=== PATIENT | female | born 1945 | race American Indian/Alaskan Native ===

== ENCOUNTER → 2017-09-01 | Outpatient (CLI) | payer BC ==
[~2017-09-01] MED LIST: ALBU90OI61; ALLO100; ALLO300; ASPI81CH; BUME1; CLOP75 PO; DIPASPER; FAMO20 PO; GABA300; GLYB5; HYDACE10B PO; HYDROCORT; INSULANI; LEVFLO250 PO; LOSA50 PO; NAPR375; NAPR500 PO; Norvasc2.5 MG PO; OXYC5 PO; OXYCODONE 5 MG; PANT20; PIOG15; POTA10T; SIMV40; STOOL SOFTENER; TIZA4; TRAM50 PO; VALS80; [UNRECOGNIZED DRUG - REMARK]
[2017-09-01 09:51] LABS: BASOPHILS ABSOLUTE AUTO 0.03 K/mm3 (0.00-0.23); BASOPHILS PERCENT AUTO 0 % (0-2); EOSINOPHILS PERCENT AUTO 1 % (0-6); Hematocrit 36.3 % (33.0-51.0); Hemoglobin 11.9 g/dL (11.5-16.0); IMMATURE GRAN ABSOLUTE AUTO 0.05 K/mm3 (0.00-0.10); IMMATURE GRAN PERCENT AUTO 1 % (0-1); LYMPHOCYTES ABSOLUTE AUTO 0.63 K/mm3 (0.84-5.20); LYMPHOCYTES PERCENT AUTO 6 % (21-46); MONOCYTES PERCENT AUTO 5 % (4-13); Mean Corpuscular HGB 29.2 pg (26.0-34.0); Mean Corpuscular HGB Conc 32.8 g/dL (31.5-36.5); Mean Corpuscular Volume 89 fL (80-100); Mean Platelet Volume 11.1 fL (9.1-12.4); NEUTROPHILS ABSOLUTE AUTO 9.63 K/mm3 (1.96-9.15); NEUTROPHILS PERCENT AUTO 87 % (41-73); Platelet Count 212 K/mm3 (150-400); RDW Coefficient Variation 13.2 % (11.7-14.2); RDW Standard Deviation 42.5 fL (35.1-46.3); Red Blood Cell Count 4.08 M/mm3 (3.80-5.20); White Blood Cell Count 11.04 K/mm3 (4.00-11.30)
[2017-09-01 10:00] LABS: Albumin/Globulin Ratio 0.9 (0.8-1.8); Bilirubin, Total 0.4 mg/dL (0.1-1.0); Bun/Creatinine Ratio 16.1 (12.0-20.0); Creatinine, Blood 1.12 mg/dL (0.40-1.00); Globulin, Blood 4.6 g/dL (2.2-4.0); Potassium, Blood 4.4 mmol/L (3.5-5.5); Total Protein, Blood 8.6 g/dL (6.4-8.2)
== END | disposition home or self-care (01) ==
LOC: LAB EV 09:42
PROVIDERS: General Practice
DX: R06.02 Shortness of breath (principal)
CPT/HCPCS: 80053; 83880; 85025

== ENCOUNTER → 2019-09-12 | Outpatient (CLI) | payer BC ==
[~2019-09-12] MED LIST changes: +ACET500 PO; +AMLO5 PO; +AZIT500 PO; +BENADRYL25 M1 PO; +BENZ100A PO; +GABA300 PO; +GUAI600T33 PO; +LOSARTAN POTAS100 MG PO; +METF500 PO; +METPRE4 PO; +VITAMIN B-121000 MCG PO
[2019-09-12 16:14] LABS: BASOPHILS ABSOLUTE AUTO 0.07 K/mm3 (0.00-0.23); BASOPHILS PERCENT AUTO 1 % (0-2); EOSINOPHILS ABSOLUTE AUTO 0.22 K/mm3 (0.00-0.68); EOSINOPHILS PERCENT AUTO 2 % (0-6); Hematocrit 37.1 % (33.0-51.0); Hemoglobin 12.1 g/dL (11.5-16.0); IMMATURE GRAN ABSOLUTE AUTO 0.06 K/mm3 (0.00-0.10); IMMATURE GRAN PERCENT AUTO 1 % (0-1); LYMPHOCYTES ABSOLUTE AUTO 1.71 K/mm3 (0.84-5.20); LYMPHOCYTES PERCENT AUTO 14 % (21-46); MONOCYTES ABSOLUTE AUTO 0.62 K/mm3 (0.16-1.47); MONOCYTES PERCENT AUTO 5 % (4-13); Mean Corpuscular HGB 30.1 pg (26.0-34.0); Mean Corpuscular HGB Conc 32.6 g/dL (31.5-36.5); Mean Corpuscular Volume 92 fL (80-100); Mean Platelet Volume 11.4 fL (9.1-12.4); NEUTROPHILS ABSOLUTE AUTO 9.21 K/mm3 (1.96-9.15); NEUTROPHILS PERCENT AUTO 77 % (41-73); Platelet Count 264 K/mm3 (150-400); RDW Coefficient Variation 13.5 % (11.7-14.2); RDW Standard Deviation 45.5 fL (35.1-46.3); Red Blood Cell Count 4.02 M/mm3 (3.80-5.20); White Blood Cell Count 11.89 K/mm3 (4.00-11.30)
[2019-09-12 16:24] LABS: Albumin/Globulin Ratio 0.9 (0.8-1.8); Bilirubin, Total 0.2 mg/dL (0.1-1.0); Bun/Creatinine Ratio 20.2 (12.0-20.0); Calcium, Blood 9.3 mg/dL (8.5-10.1); Creatinine, Blood 1.04 mg/dL (0.40-1.00); Globulin, Blood 4.3 g/dL (2.2-4.0); Potassium, Blood 4.9 mmol/L (3.5-5.5); Total Protein, Blood 8.3 g/dL (6.4-8.2)
== END | disposition home or self-care (01) ==
LOC: LAB EV 16:09 → LAB SHORT 16:09
PROVIDERS: Physician Assistant
DX: R05 Cough (principal)
CPT/HCPCS: 80053; 83880; 85025

== ENCOUNTER 2019-09-14 13:40 | Observation (INO) | payer BC ==
[~2019-09-14] VITALS: Ht 170.2 cm; Wt 99.4 kg
[~2019-09-14 13:40] MED LIST changes: -ACET500 PO; -AMLO5 PO; -AZIT500 PO; -BENADRYL25 M1 PO; -BENZ100A PO; -GABA300 PO; -GUAI600T33 PO; -LOSARTAN POTAS100 MG PO; -METF500 PO; -METPRE4 PO; -VITAMIN B-121000 MCG PO
[2019-09-14 14:14] LABS: BASOPHILS ABSOLUTE AUTO 0.06 K/mm3 (0.00-0.23); BASOPHILS PERCENT AUTO 1 % (0-2); EOSINOPHILS ABSOLUTE AUTO 0.36 K/mm3 (0.00-0.68); EOSINOPHILS PERCENT AUTO 3 % (0-6); Hematocrit 38.1 % (33.0-51.0); Hemoglobin 12.3 g/dL (11.5-16.0); IMMATURE GRAN ABSOLUTE AUTO 0.04 K/mm3 (0.00-0.10); IMMATURE GRAN PERCENT AUTO 0 % (0-1); LYMPHOCYTES ABSOLUTE AUTO 1.85 K/mm3 (0.84-5.20); LYMPHOCYTES PERCENT AUTO 17 % (21-46); MONOCYTES ABSOLUTE AUTO 0.72 K/mm3 (0.16-1.47); MONOCYTES PERCENT AUTO 7 % (4-13); Mean Corpuscular HGB 30.2 pg (26.0-34.0); Mean Corpuscular HGB Conc 32.3 g/dL (31.5-36.5); Mean Corpuscular Volume 94 fL (80-100); Mean Platelet Volume 11.4 fL (9.1-12.4); NEUTROPHILS ABSOLUTE AUTO 8.02 K/mm3 (1.96-9.15); NEUTROPHILS PERCENT AUTO 73 % (41-73); Platelet Count 261 K/mm3 (150-400); RDW Coefficient Variation 13.4 % (11.7-14.2); RDW Standard Deviation 45.8 fL (35.1-46.3); Red Blood Cell Count 4.07 M/mm3 (3.80-5.20); White Blood Cell Count 11.05 K/mm3 (4.00-11.30)
[2019-09-14 14:28] LABS: Alanine Aminotransfer (ALT/SGP 27 U/L (12-78); Albumin, Blood 4.1 g/dL (3.4-5.0); Albumin/Globulin Ratio 0.9 (0.8-1.8); Alk Phos 119 U/L (50-136); Anion Gap 7 mmol/L (6-16); Aspartate Aminotrans (AST/SGOT 20 U/L (12-37); Bilirubin, Total 0.2 mg/dL (0.1-1.0); Blood Urea Nitrogen 20 mg/dL (8-24); Bun/Creatinine Ratio 21.2 (12.0-20.0); CO2, Blood 23 mmol/L (21-32); Calcium, Blood 9.2 mg/dL (8.5-10.1); Chloride, Blood 112 mmol/L (98-108); Creatinine, Blood 0.94 mg/dL (0.40-1.00); Globulin, Blood 4.6 g/dL (2.2-4.0); Glomerular Filtration Rate >60 (60-); Glucose, Blood 95 mg/dL (70-99); Potassium, Blood 4.5 mmol/L (3.5-5.5); Sodium, Blood 142 mmol/L (136-145); Total Protein, Blood 8.7 g/dL (6.4-8.2); Troponin I <0.015 ng/mL (0.000-0.040)
[2019-09-14 15:19] LABS: Influenza A Negative (NEGATIVE); Influenza B Negative (NEGATIVE)
[2019-09-14] MEDS ORDERED: AZIT500 PO (15:39)
--- NOTE | 2019-09-14 18:34 | NUR ---
PT ARRIVED AT 1721 TO ROOM. PT OREINTED TO CALL LIGHT AND BED ALARM IN PLACE. PT AOX4 AND COOPERATIVE OF CARE. PT HAS A PERSISTENT COUGH AND LSC THROUGHOUT. PT IS ON 1L O2 AT THIS TIME. PT IS RESTING IN BED WAITING FOR HER DINNER TO ARRIVE. WILL CONTINUE TO MONITOR.
--- NOTE | 2019-09-15 05:02 | NUR ---
SHIFT SUMMARY PT O2 WAS REMOVED DUE TO HIGH SPO2. PT HAS BEEN DOING WELL ON RA. PT HAS SLEPT WELL AND HAD NO NEW ISSUES NOTED. PT STILL GETS SOB WITH EXERTION TO BSC. EXERTION RESOLVES QUICKLY WITH REST. PT HAD NOTED HARSH COUGH AND PROVIDER ORDERED MEDS. PT RESPONDED WELL TO COUGH MEDS. PT CURRENTLY SLEEPING IN NO DISTRESS. CALL LIGHT IN REACH.
[2019-09-15 05:37] LABS: BASOPHILS ABSOLUTE AUTO 0.01 K/mm3 (0.00-0.23); BASOPHILS PERCENT AUTO 0 % (0-2); EOSINOPHILS PERCENT AUTO 0 % (0-6); Hematocrit 35.7 % (33.0-51.0); Hemoglobin 11.3 g/dL (11.5-16.0); IMMATURE GRAN ABSOLUTE AUTO 0.06 K/mm3 (0.00-0.10); IMMATURE GRAN PERCENT AUTO 1 % (0-1); LYMPHOCYTES ABSOLUTE AUTO 0.67 K/mm3 (0.84-5.20); LYMPHOCYTES PERCENT AUTO 7 % (21-46); MONOCYTES ABSOLUTE AUTO 0.05 K/mm3 (0.16-1.47); MONOCYTES PERCENT AUTO 1 % (4-13); Mean Corpuscular HGB 29.7 pg (26.0-34.0); Mean Corpuscular HGB Conc 31.7 g/dL (31.5-36.5); Mean Corpuscular Volume 94 fL (80-100); Mean Platelet Volume 11.6 fL (9.1-12.4); NEUTROPHILS ABSOLUTE AUTO 8.76 K/mm3 (1.96-9.15); NEUTROPHILS PERCENT AUTO 92 % (41-73); Platelet Count 209 K/mm3 (150-400); RDW Coefficient Variation 13.2 % (11.7-14.2); RDW Standard Deviation 45.6 fL (35.1-46.3); White Blood Cell Count 9.55 K/mm3 (4.00-11.30)
[2019-09-15 06:00] LABS: Anion Gap 7 mmol/L (6-16); Blood Urea Nitrogen 22 mg/dL (8-24); Bun/Creatinine Ratio 27.2 (12.0-20.0); CO2, Blood 22 mmol/L (21-32); Chloride, Blood 109 mmol/L (98-108); Creatinine, Blood 0.81 mg/dL (0.40-1.00); Glomerular Filtration Rate >60 (60-); Glucose, Blood 215 mg/dL (70-99); Potassium, Blood 4.9 mmol/L (3.5-5.5); Sodium, Blood 138 mmol/L (136-145)
--- NOTE | 2019-09-15 14:39 | NUR ---
Patient is sitting on a chair and alert. Patient shares about all that she has overcome in life and about her stanton in God. Patient tells me that this series of medical events really scared her and how she is afraid to go home with out proper medical suppies to support her if she can't breath. We talk about the DC plan and how they will go over all her concerns. I listen empathically, normalize patient's experience and provide a blessing. Patient responds well and shows signs of reduced fear. I will continue to remain available to patient and family.
--- NOTE | 2019-09-15 17:34 | NUR ---
PT AOX4 AND COOPERATIVE OF CARE. PT WAS BREATHING MUCH MORE RELAXED AT START OF SHIFT TODAY. LATER IN THE MORNING PT HAD COUGHING SPELL AND WAS TREATED PER EMAR FOR COUGH AND NAUSEA. COUGHING SEEMS TO CAUSE PT TO VOMIT THIS OCCURED 4 TIMES TODAY. REQUIRED PRN RT TREATMENT WITH THE FIRST SPELL SHE WAS HAVING TO WORK TO BREATH. THIS TREATMENT SEEMED EFFECTIVE. WILL CONTINUE TO MONITOR.
--- NOTE | 2019-09-16 00:19 | NUR ---
INTERMITTENT COUGHING, RECEIVED TESSALON PEARLS PER MD ORDERS. AFFECT CHEERFUL. ANTIBIOTICS ADMINISTERED ORDERED - SEE MAR FOR MED DETAILS. CALL LIGHT IN REACH. RESTING QUIETLY AT INTERVALS.
[2019-09-16 05:46] LABS: BASOPHILS ABSOLUTE AUTO 0.01 K/mm3 (0.00-0.23); BASOPHILS PERCENT AUTO 0 % (0-2); EOSINOPHILS PERCENT AUTO 0 % (0-6); Hematocrit 32.6 % (33.0-51.0); Hemoglobin 10.6 g/dL (11.5-16.0); IMMATURE GRAN ABSOLUTE AUTO 0.14 K/mm3 (0.00-0.10); IMMATURE GRAN PERCENT AUTO 1 % (0-1); LYMPHOCYTES ABSOLUTE AUTO 0.71 K/mm3 (0.84-5.20); LYMPHOCYTES PERCENT AUTO 4 % (21-46); MONOCYTES ABSOLUTE AUTO 0.27 K/mm3 (0.16-1.47); MONOCYTES PERCENT AUTO 2 % (4-13); Mean Corpuscular HGB Conc 32.5 g/dL (31.5-36.5); Mean Corpuscular Volume 92 fL (80-100); Mean Platelet Volume 11.8 fL (9.1-12.4); NEUTROPHILS ABSOLUTE AUTO 16.57 K/mm3 (1.96-9.15); NEUTROPHILS PERCENT AUTO 94 % (41-73); Platelet Count 225 K/mm3 (150-400); RDW Coefficient Variation 13.5 % (11.7-14.2); RDW Standard Deviation 45.3 fL (35.1-46.3); Red Blood Cell Count 3.53 M/mm3 (3.80-5.20)
[2019-09-16 06:07] LABS: Anion Gap 7 mmol/L (6-16); Blood Urea Nitrogen 28 mg/dL (8-24); Bun/Creatinine Ratio 30.5 (12.0-20.0); CO2, Blood 23 mmol/L (21-32); Chloride, Blood 107 mmol/L (98-108); Creatinine, Blood 0.92 mg/dL (0.40-1.00); Glomerular Filtration Rate >60 (60-); Glucose, Blood 243 mg/dL (70-99); Potassium, Blood 4.8 mmol/L (3.5-5.5); Sodium, Blood 137 mmol/L (136-145)
[2019-09-16] MEDS ORDERED: AMLO5 PO (13:39)
[2019-09-16] MEDS ORDERED: ACET500 PO (13:41)
[2019-09-16] MEDS ORDERED: BENZ100A PO (13:42)
[2019-09-16] MEDS ORDERED: GUAI600T33 PO (13:43)
[2019-09-16] MEDS ORDERED: BENADRYL25 M1 PO (13:43)
[2019-09-16] MEDS ORDERED: METPRE4 PO (13:49)
[2019-09-16] MEDS ORDERED: METF500 PO (13:50)
--- NOTE | 2019-09-16 13:57 | NUR ---
DISCHARGE PT STATE NO SHORTNESS OF BREATH @ REST, STATE BREATHING CONTINUES TO IMPROVE. STATE CONTINUING DRY/NONPRODUCTIVE COUGH. LUNGS ARE DECREASED, COARSE BASES, BIOX >90% RA. DR GOSS IN TO SEE HER STATE SHE MAY GO HOME TODAY, PLACE D/C ORDERS. [facility] D/C RN LVN ARRANGE F/U PCP APPTS & OUTPT COPD ED w [facility]. PT REQUEST HARD COPY OF MED ORDERS TO CARRY IN TO [facility], PROVIDED. IV D/C INTACT. D/C INSTRUCT REVIEWED. PT IS PLEASANT/APPRECIATIVE. W/C ESCORT FROM HOSP PROVIDED.
[2019-09-17] MEDS ORDERED: GABA300 PO (14:51)
[2019-09-17] MEDS ORDERED: VITAMIN B-121000 MCG PO (15:18)
[2019-09-17] MEDS ORDERED: LOSARTAN POTAS100 MG PO (15:19)
[2019-09-17] MEDS ORDERED: METPRE4 PO (15:45)
== END 2019-09-16 14:45 | disposition home or self-care (01) ==
LOC: ER 13:40 → MEDS 13:41 → ER 16:14 → MEDS 17:11
PROVIDERS: Emergency Medicine; ADMIT Internal Medicine Endocrinology, Diabetes & Metabolism
DX: J20.9 Acute bronchitis, unspecified (principal); I12.9 Hypertensive chronic kidney disease with stage 1 through stage 4 chronic kidney disease, or unspecified chronic kidney disease; E11.22 Type 2 diabetes mellitus with diabetic chronic kidney disease; N18.3 Chronic kidney disease, stage 3 (moderate); E66.9 Obesity, unspecified; J45.901 Unspecified asthma with (acute) exacerbation; E78.5 Hyperlipidemia, unspecified; G47.33 Obstructive sleep apnea (adult) (pediatric); I69.354 Hemiplegia and hemiparesis following cerebral infarction affecting left non-dominant side; G89.29 Other chronic pain; M06.9 Rheumatoid arthritis, unspecified; J18.9 Pneumonia, unspecified organism; D63.1 Anemia in chronic kidney disease; Z88.6 Allergy status to analgesic agent; Z88.5 Allergy status to narcotic agent; Z88.8 Allergy status to other drugs, medicaments and biological substances; Z87.891 Personal history of nicotine dependence; Z79.02 Long term (current) use of antithrombotics/antiplatelets; Z79.899 Other long term (current) drug therapy; Z68.41 Body mass index [BMI] 40.0-44.9, adult; Z79.84 Long term (current) use of oral hypoglycemic drugs
CPT/HCPCS: 36415; 71045; 71046; 80048; 80053; 82947; 83605; 83880; 84145; 84484; 85025; 87804; 93005; 93010; 94640; 94667; 94760; 96361; 96374; 96375; 99285-25; J0456; J1650; J2405; J2920; J2930; J7030; J7050; Q0163

== ENCOUNTER 2019-09-17 12:30 | Inpatient (IN) | payer BC, MEDICARE ==
[~2019-09-17] VITALS: Ht 170.2 cm; Wt 94.5 kg
[~2019-09-17 12:30] MED LIST changes: +ACET500 PO; +AMLO5 PO; +AZIT500 PO; +BENADRYL25 M1 PO; +BENZ100A PO; +GUAI600T33 PO; +METF500 PO; +METPRE4 PO
[2019-09-17 13:57] LABS: BASOPHILS ABSOLUTE AUTO 0.02 K/mm3 (0.00-0.23); BASOPHILS PERCENT AUTO 0 % (0-2); EOSINOPHILS PERCENT AUTO 0 % (0-6); Hematocrit 34.6 % (33.0-51.0); Hemoglobin 11.2 g/dL (11.5-16.0); IMMATURE GRAN ABSOLUTE AUTO 0.09 K/mm3 (0.00-0.10); IMMATURE GRAN PERCENT AUTO 1 % (0-1); LYMPHOCYTES ABSOLUTE AUTO 1.48 K/mm3 (0.84-5.20); LYMPHOCYTES PERCENT AUTO 11 % (21-46); MONOCYTES ABSOLUTE AUTO 0.42 K/mm3 (0.16-1.47); MONOCYTES PERCENT AUTO 3 % (4-13); Mean Corpuscular HGB 30.2 pg (26.0-34.0); Mean Corpuscular HGB Conc 32.4 g/dL (31.5-36.5); Mean Corpuscular Volume 93 fL (80-100); NEUTROPHILS PERCENT AUTO 86 % (41-73); Platelet Count 244 K/mm3 (150-400); RDW Coefficient Variation 13.5 % (11.7-14.2); RDW Standard Deviation 45.7 fL (35.1-46.3); Red Blood Cell Count 3.71 M/mm3 (3.80-5.20); White Blood Cell Count 13.81 K/mm3 (4.00-11.30)
[2019-09-17 14:17] LABS: Alanine Aminotransfer (ALT/SGP 33 U/L (12-78); Albumin, Blood 3.7 g/dL (3.4-5.0); Alk Phos 94 U/L (50-136); Anion Gap 10 mmol/L (6-16); Aspartate Aminotrans (AST/SGOT 33 U/L (12-37); Bilirubin, Total 0.3 mg/dL (0.1-1.0); Blood Urea Nitrogen 33 mg/dL (8-24); Bun/Creatinine Ratio 33.7 (12.0-20.0); CO2, Blood 20 mmol/L (21-32); Calcium, Blood 9.1 mg/dL (8.5-10.1); Chloride, Blood 111 mmol/L (98-108); Creatinine, Blood 0.98 mg/dL (0.40-1.00); Globulin, Blood 3.8 g/dL (2.2-4.0); Glomerular Filtration Rate 59 (60-); Glucose, Blood 183 mg/dL (70-99); Potassium, Blood 3.8 mmol/L (3.5-5.5); Sodium, Blood 141 mmol/L (136-145); Total Protein, Blood 7.5 g/dL (6.4-8.2); Troponin I <0.015 ng/mL (0.000-0.040)
[2019-09-17] MEDS ORDERED: GABA300 PO (14:51)
[2019-09-17] MEDS ORDERED: VITAMIN B-121000 MCG PO (15:18)
[2019-09-17] MEDS ORDERED: LOSARTAN POTAS100 MG PO (15:19)
[2019-09-17] MEDS ORDERED: METPRE4 PO (15:45)
--- NOTE | 2019-09-17 16:25 | NUR ---
Echocardiogram completed.
--- NOTE | 2019-09-17 18:24 | NUR ---
ARRIVES TO FLOOR ABOUT 1500. ALERT. ORIENTED. D'C FROM HOSPITAL YESTERDAY AND RETURNS W/SOB AND COUGH. BNP HIGH W/NO EDEMA IN EXT,BUT LUNGS W/RHONCHI AND INTERMITTENT WHEEZING. SPUTUM SENT. IV POSITIONAL.MOIST SOUNDING COUGH. AWARE TO CALL STAFF WHEN WANTS OOB. UNSTEADY/WEAK LEGS. SPEAKS IN COMPLETE SENTENCS. WCTM.
--- NOTE | 2019-09-18 02:45 | NUR ---
PLEASANT AND COOPERATIVE WITH CARE. AAOX4 RESP EVEN AND UNLABORED. LUNG SOUNDS DIMINISHED. HAD SOME ANXIETY AND FEELINGS OF SOB EARLY THIS NIGHT. CONSULTED RT. PT WAS SATTING IN HIGH 90'S AND WAS PLACED ON 3L OF AIR FOR COMFORT. RT REMOVED THE AIR SHORTLY AFTER AND PT STATES SHE FEELS FINE. NO OTHER COMPLAINTS THUS FAR. PT APPEARS TO BE SLEEPING AND IN NO ACUTE DISTRESS AT THIS TIME. WILL CONTINUE TO MONITOR.
[2019-09-18 05:25] LABS: BASOPHILS ABSOLUTE AUTO 0.01 K/mm3 (0.00-0.23); BASOPHILS PERCENT AUTO 0 % (0-2); EOSINOPHILS PERCENT AUTO 0 % (0-6); Hematocrit 32.9 % (33.0-51.0); Hemoglobin 10.7 g/dL (11.5-16.0); IMMATURE GRAN ABSOLUTE AUTO 0.14 K/mm3 (0.00-0.10); IMMATURE GRAN PERCENT AUTO 2 % (0-1); LYMPHOCYTES ABSOLUTE AUTO 0.39 K/mm3 (0.84-5.20); LYMPHOCYTES PERCENT AUTO 5 % (21-46); MONOCYTES ABSOLUTE AUTO 0.07 K/mm3 (0.16-1.47); MONOCYTES PERCENT AUTO 1 % (4-13); Mean Corpuscular HGB 29.8 pg (26.0-34.0); Mean Corpuscular HGB Conc 32.5 g/dL (31.5-36.5); Mean Corpuscular Volume 92 fL (80-100); Mean Platelet Volume 12.1 fL (9.1-12.4); NEUTROPHILS PERCENT AUTO 93 % (41-73); Platelet Count 214 K/mm3 (150-400); RDW Coefficient Variation 13.2 % (11.7-14.2); RDW Standard Deviation 45.1 fL (35.1-46.3); Red Blood Cell Count 3.59 M/mm3 (3.80-5.20); White Blood Cell Count 8.11 K/mm3 (4.00-11.30)
[2019-09-18 05:55] LABS: Anion Gap 8 mmol/L (6-16); Blood Urea Nitrogen 32 mg/dL (8-24); Bun/Creatinine Ratio 37.6 (12.0-20.0); CO2, Blood 23 mmol/L (21-32); Calcium, Blood 8.8 mg/dL (8.5-10.1); Chloride, Blood 108 mmol/L (98-108); Creatinine, Blood 0.85 mg/dL (0.40-1.00); Glomerular Filtration Rate >60 (60-); Glucose, Blood 247 mg/dL (70-99); Potassium, Blood 4.7 mmol/L (3.5-5.5); Sodium, Blood 139 mmol/L (136-145)
--- NOTE | 2019-09-18 16:45 | NUR ---
PT GAVE STUDENT NURSE PERMISSION TO ASSIST WITH CARE ON 09/18/2019.
--- NOTE | 2019-09-18 16:50 | NUR ---
PT AOX4 AND COOPERATIVE OF ALL CARE. PT STARTED OUT SHIFT DOING WELL NOT SHORTNESS OF BREATH AND CONTINUED THROUGH THE DAY. PT HAD ONE EPISODE OF ANXIETY LATER IN THE DAY IMMEDIATELY AFTER RECIEVING A BREATHING TREATMENT. PT WAS 98%, BUT FELT SOB AND WAS BREATHING FAST. PT DID GOOD WITH INSTRUCTION TO SLOW DOWN BREATHING AND THEN SHE CALMED DOWN AND RELAXED. PT IS NOW RESTING NICELY IN BED. PT WAS ALSO ABLE TO TAKE A SHOWER TODAY INDEPENDENTLY. WILL CONTINUE TO MONITOR.
--- NOTE | 2019-09-18 20:19 | NUR ---
LATE ENTRY 1953 PHYSICIAN CORRESPONDENCE STATED THAT PATIENT REUQESTING SLEEP AIDE FOR TONIGHT. WELL BP ELEVATED TO 158/136. KEERTHI LOCKHART STATED TO FIND OUT IN PATIENT HAD EVER TAKEN ANYTHING LIKE MELATONIN OR ANTIANXIETY BEFORE AND CHECK BP AGAIN. THEN CALL BACK WITH RESULTS
[2019-09-19 05:32] LABS: BASOPHILS ABSOLUTE AUTO 0.01 K/mm3 (0.00-0.23); BASOPHILS PERCENT AUTO 0 % (0-2); EOSINOPHILS PERCENT AUTO 0 % (0-6); Hematocrit 33.6 % (33.0-51.0); Hemoglobin 10.9 g/dL (11.5-16.0); IMMATURE GRAN ABSOLUTE AUTO 0.22 K/mm3 (0.00-0.10); IMMATURE GRAN PERCENT AUTO 2 % (0-1); LYMPHOCYTES ABSOLUTE AUTO 0.54 K/mm3 (0.84-5.20); LYMPHOCYTES PERCENT AUTO 5 % (21-46); MONOCYTES ABSOLUTE AUTO 0.21 K/mm3 (0.16-1.47); MONOCYTES PERCENT AUTO 2 % (4-13); Mean Corpuscular HGB 29.9 pg (26.0-34.0); Mean Corpuscular HGB Conc 32.4 g/dL (31.5-36.5); Mean Corpuscular Volume 92 fL (80-100); Mean Platelet Volume 12.1 fL (9.1-12.4); NEUTROPHILS ABSOLUTE AUTO 10.91 K/mm3 (1.96-9.15); NEUTROPHILS PERCENT AUTO 92 % (41-73); Platelet Count 214 K/mm3 (150-400); RDW Coefficient Variation 13.2 % (11.7-14.2); RDW Standard Deviation 44.5 fL (35.1-46.3); Red Blood Cell Count 3.65 M/mm3 (3.80-5.20); White Blood Cell Count 11.89 K/mm3 (4.00-11.30)
[2019-09-19 05:57] LABS: Anion Gap 5 mmol/L (6-16); Blood Urea Nitrogen 31 mg/dL (8-24); Bun/Creatinine Ratio 32.4 (12.0-20.0); CO2, Blood 25 mmol/L (21-32); Calcium, Blood 8.9 mg/dL (8.5-10.1); Chloride, Blood 105 mmol/L (98-108); Creatinine, Blood 0.96 mg/dL (0.40-1.00); Glomerular Filtration Rate >60 (60-); Glucose, Blood 257 mg/dL (70-99); Potassium, Blood 4.7 mmol/L (3.5-5.5); Sodium, Blood 135 mmol/L (136-145)
--- NOTE | 2019-09-19 07:39 | NUR ---
SHIFT SUMMARY A/O, ABLE TO MAKE NEEDS KNOWN. COOPERATIVE WITH CARE. CALLS AND ANSWERS QUESTIONS APPROPRIATELY. NO C/O PAIN/DISCOMFORT. NEW ORDERS FOR XANAX AND MELATONIN; STATED THIS AM THAT GREAT RELIEF AND WAS ABLE TO REST MUCH OF NIGHT. INDEPENDENT WITH FWW TO BATHROOM; STEADY GAIT. NO ACUTE CHANGES NOTED. BED IN LOWEST POSITION. CALL LIGHT AND BELONGINGS WITHIN REACH. CONTINUED TO MONITOR. REPORT GIVEN TO ONCOMING RN.
[2019-09-19] MEDS ORDERED: ALPR.25 PO (11:03)
[2019-09-19] MEDS ORDERED: DULO60 PO (11:04)
[2019-09-19] MEDS ORDERED: Duoneb 2.5-0.5 M3 ML INH (11:04)
[2019-09-19] MEDS ORDERED: LEVFLO500 PO (11:04)
[2019-09-19] MEDS ORDERED: INSULANPEN SC (11:06)
[2019-09-19] MEDS ORDERED: Prednisone10 MG (11:08)
--- NOTE | 2019-09-19 14:32 | NUR ---
DISCHARGE SUMMARY PT LEFT AT 1330 WITH BY WC. GAVE EDUCATION ON INSULIN PEN WITH KIT, AND PACKET GIVEN LIVING WELL WITH DIABETES. SBA TO BR. WALKED IN HALLWAYS ONCE. MEDS FAXED TO PHARMACY. GIVEN WRITTEN RX FOR XANAX AND NEBULIZER AND INSULIN PEN NEEDLES. PT ANXIOUS ABOUT GOING HOME, REASSURANCE GIVEN, DR YATES AWARE OF PT'S ANXIETY. RESP STATUS STABLE. HIGH RISK COPD READMISSION PROGRAM INITIATED. PIVS REMOVED, PAPERWORK GONE OVER, PT AWARE THAT [facility] WILL CALL HER WITH A F/U APPT.
== END 2019-09-19 13:37 | disposition home or self-care (01) | DRG 191 ==
LOC: ER 12:30 → MEDS 15:08 → ENPENDDIS 09-19 12:00 → MEDS 09-19 13:37
PROVIDERS: Emergency Medicine; Family Medicine; ADMIT Family Medicine
DX: J44.1 Chronic obstructive pulmonary disease with (acute) exacerbation (principal); I69.954 Hemiplegia and hemiparesis following unspecified cerebrovascular disease affecting left non-dominant side; I12.9 Hypertensive chronic kidney disease with stage 1 through stage 4 chronic kidney disease, or unspecified chronic kidney disease; N18.3 Chronic kidney disease, stage 3 (moderate); E11.22 Type 2 diabetes mellitus with diabetic chronic kidney disease; M79.7 Fibromyalgia; F41.9 Anxiety disorder, unspecified; G47.33 Obstructive sleep apnea (adult) (pediatric); E78.5 Hyperlipidemia, unspecified; M06.9 Rheumatoid arthritis, unspecified; G89.4 Chronic pain syndrome; Z79.84 Long term (current) use of oral hypoglycemic drugs; Z79.02 Long term (current) use of antithrombotics/antiplatelets; Z87.891 Personal history of nicotine dependence
CPT/HCPCS: 36415; 71046; 80048; 80053; 82947; 83735; 83880; 84484; 85025; 87070; 87205; 93005; 93010; 93306; 94640; 94760; 99285-25; A9270; J0696; J1650; J1956; J2930; J7050

== ENCOUNTER 2019-09-22 09:40 | Inpatient (IN) | payer BC, MEDICARE ==
[~2019-09-22] VITALS: Ht 170.2 cm; Wt 99.4 kg
[~2019-09-22 09:40] MED LIST changes: +ALPR.25 PO; +DULO60 PO; +Duoneb 2.5-0.5 M3 ML INH; +GABA300 PO; +INSULANPEN SC; +LEVFLO500 PO; +LOSARTAN POTAS100 MG PO; +Prednisone10 MG; +VITAMIN B-121000 MCG PO
[2019-09-22 10:24] LABS: BASOPHILS ABSOLUTE AUTO 0.07 K/mm3 (0.00-0.23); BASOPHILS PERCENT AUTO 0 % (0-2); EOSINOPHILS ABSOLUTE AUTO 0.22 K/mm3 (0.00-0.68); EOSINOPHILS PERCENT AUTO 1 % (0-6); Hematocrit 39.6 % (33.0-51.0); Hemoglobin 12.8 g/dL (11.5-16.0); IMMATURE GRAN ABSOLUTE AUTO 0.54 K/mm3 (0.00-0.10); IMMATURE GRAN PERCENT AUTO 3 % (0-1); LYMPHOCYTES PERCENT AUTO 6 % (21-46); MONOCYTES ABSOLUTE AUTO 0.65 K/mm3 (0.16-1.47); MONOCYTES PERCENT AUTO 4 % (4-13); Mean Corpuscular HGB Conc 32.3 g/dL (31.5-36.5); Mean Corpuscular Volume 93 fL (80-100); Mean Platelet Volume 11.7 fL (9.1-12.4); NEUTROPHILS ABSOLUTE AUTO 14.79 K/mm3 (1.96-9.15); NEUTROPHILS PERCENT AUTO 86 % (41-73); Platelet Count 242 K/mm3 (150-400); RDW Coefficient Variation 13.2 % (11.7-14.2); Red Blood Cell Count 4.27 M/mm3 (3.80-5.20); White Blood Cell Count 17.27 K/mm3 (4.00-11.30)
[2019-09-22 10:33] LABS: PCO2 Arterial 40.2 mmHg (35-45); PO2 Arterial 67.5 mmHg (80-100); pH Blood Arterial 7.43 (7.35-7.45)
[2019-09-22 10:37] LABS: Anion Gap 7 mmol/L (6-16); Blood Urea Nitrogen 31 mg/dL (8-24); Bun/Creatinine Ratio 34.8 (12.0-20.0); CO2, Blood 25 mmol/L (21-32); Calcium, Blood 8.8 mg/dL (8.5-10.1); Chloride, Blood 105 mmol/L (98-108); Creatinine, Blood 0.89 mg/dL (0.40-1.00); Glomerular Filtration Rate >60 (60-); Glucose, Blood 184 mg/dL (70-99); Potassium, Blood 4.6 mmol/L (3.5-5.5); Sodium, Blood 137 mmol/L (136-145)
[2019-09-22 10:40] LABS: Troponin I <0.015 ng/mL (0.000-0.040)
[2019-09-22] MEDS ORDERED: AMLODIPINE BESYL5 MG PO (11:51)
[2019-09-22] MEDS ORDERED: VITAMIN B-121000 MCG PO (11:51)
[2019-09-22] MEDS ORDERED: LOSARTAN POTAS100 MG PO (11:52)
[2019-09-22 15:53] LABS: Adenovirus Not Detected (NOT DETECT); Bordetella pertussis Not Detected (NOT DETECT); Chlamydophila pneumoniae Not Detected (NOT DETECT); Coronavirus 229E Not Detected (NOT DETECT); Coronavirus HKU1 Detected (NOT DETECT); Coronavirus NL63 Not Detected (NOT DETECT); Coronavirus OC43 Not Detected (NOT DETECT); Human Metapneumovirus Not Detected (NOT DETECT); Human Rhinovirus/Enterovirus Not Detected (NOT DETECT); Influenza A Not Detected (NOT DETECT); Influenza A/2009-H1 Not Detected (NOT DETECT); Influenza A/H1 Detected (NOT DETECT); Influenza A/H3 Not Detected (NOT DETECT); Influenza B Not Detected (NOT DETECT); Mycoplasma pneumoniae Not Detected (NOT DETECT); Parainfluenza Virus 1 Not Detected (NOT DETECT); Parainfluenza Virus 2 Not Detected (NOT DETECT); Parainfluenza Virus 3 Not Detected (NOT DETECT); Parainfluenza Virus 4 Not Detected (NOT DETECT); Respiratory Syncytial Virus Not Detected (NOT DETECT)
--- NOTE | 2019-09-22 18:33 | NUR ---
PT RECEIVE FROM ED AT AROUND 1600 VIA STRETCHER. PT IS HERE FOR ACUTE RESPIRATORY FAILURE. PT ON 3L OF O2 VIA NC SATS KEPT ABOVE 90%, DYSPNEA ON EXCERTON, NOTED USE OF ACCESSORY MUSCLES RR MAY RANGE 22-30. PT FLU SWAB POSITIVE ON INFLENZA A VIRUS PT STARTED ON DROPLET PRECAUTION. PT HAS OCCASIONAL MOIST COUGH, PT NOT COUGHING UP ANY SPUTUM HOB ELEVATED 30% LUNGS WITH COARSE CRACKLES AND EXPIRATORY WHEEZES PT RECEIVED BREATHING TX FROM ED BEFORE ARRIVING TO THE UNIT. PT IS A 1PA SBA FOR TOILET TRANSFER/AMBULATING VIA FWW. PT C/O 5/10 PAIN ON UPPER ABDOMEN ESPECIAALLY WHEN COUGHING, PT STATED SHE DOESN'T NEED TYLENOL AT THIS MOMENT. PT CURRENTLY RESTING IN BED CALL LIGHTS IN REACH, AT BED SIDE. TO GIVE REPORT TO ONCOMING SHIFT.
--- NOTE | 2019-09-22 19:30 | NUR ---
ASSUMED CARE NOTE: ASSUMED CARE OF PT @ 1900, RECEVIED REPORT FROM BRYANT ALVES. UPON ENTERING ROOM, PT IS ALERT AND ORIENTEDX3. PT ON 3L OF O2 VIA NC WITH SPO2 @ 93% , PT C/O SOB WITH AMBULATION. PT USES FWW WITH 1 PERSON ASSISTANCE. PT C/O SHARP STABBING PAIN TO ABDOMEN (ONLY WHEN COUGHING). PT STATES PAIN "BECOMES WORSE WITH INHALATION, BUT FEELS BETTER IF I HOLD PRESSURE TO MY STOMACH WHEN COUGHING" PT DENIES ANY N/V AT THIS TIME. BED AT LOWEST LEVEL, WILL CONTINUE TO MONITOR PT T/O SHIFT.
[2019-09-23 05:24] LABS: BASOPHILS ABSOLUTE AUTO 0.02 K/mm3 (0.00-0.23); BASOPHILS PERCENT AUTO 0 % (0-2); EOSINOPHILS PERCENT AUTO 0 % (0-6); Hemoglobin 10.8 g/dL (11.5-16.0); IMMATURE GRAN ABSOLUTE AUTO 0.34 K/mm3 (0.00-0.10); IMMATURE GRAN PERCENT AUTO 3 % (0-1); LYMPHOCYTES ABSOLUTE AUTO 0.39 K/mm3 (0.84-5.20); LYMPHOCYTES PERCENT AUTO 4 % (21-46); MONOCYTES ABSOLUTE AUTO 0.23 K/mm3 (0.16-1.47); MONOCYTES PERCENT AUTO 2 % (4-13); Mean Corpuscular HGB 29.7 pg (26.0-34.0); Mean Corpuscular HGB Conc 31.8 g/dL (31.5-36.5); Mean Corpuscular Volume 93 fL (80-100); Mean Platelet Volume 11.9 fL (9.1-12.4); NEUTROPHILS ABSOLUTE AUTO 9.61 K/mm3 (1.96-9.15); NEUTROPHILS PERCENT AUTO 91 % (41-73); Platelet Count 205 K/mm3 (150-400); RDW Coefficient Variation 13.2 % (11.7-14.2); RDW Standard Deviation 44.9 fL (35.1-46.3); Red Blood Cell Count 3.64 M/mm3 (3.80-5.20); White Blood Cell Count 10.59 K/mm3 (4.00-11.30)
[2019-09-23 06:01] LABS: Albumin, Blood 3.2 g/dL (3.4-5.0); Albumin/Globulin Ratio 0.9 (0.8-1.8); Bilirubin, Total 0.4 mg/dL (0.1-1.0); Bun/Creatinine Ratio 31.9 (12.0-20.0); Calcium, Blood 8.5 mg/dL (8.5-10.1); Creatinine, Blood 1.16 mg/dL (0.40-1.00); Globulin, Blood 3.7 g/dL (2.2-4.0); Potassium, Blood 4.4 mmol/L (3.5-5.5); Total Protein, Blood 6.9 g/dL (6.4-8.2)
--- NOTE | 2019-09-23 06:04 | NUR ---
SHIFT SUMMARY: PT REMAINS ON 3L OF NC, WITH SPO2 ABOVE 90% PT IS WHEEZE T/O, HAS NON-PRODUCTIVE COUGH. PT IS ALSO C/O PAIN WITH COUGHING, HOLDING A PILLOW WHILE COUGHING ALLEVIATES SOME OF THE PAIN, PRN TYLENOL GIVEN. PT HAS BEEN RECEVING BREATHING TREATMENTS NEEDED. PT C/O DYSPNEA WITH EXERTION. PT IN NSR WITH HR IN THE 80'S. PT USES FWW TO BEDSIDE RESTROOM/ 1 PERSON ASSIST. PT EXPERIENCING STRESS INCONTIENCE AT TIME, ATTENDS IN PLACE. WILL CONTINUE TO MONITOR PT UNTIL REPORT IS GIVEN TO ONCOMING SHIFT.
--- NOTE | 2019-09-23 17:15 | NUR ---
SHIFT SUMMARY PT ALERT AND ORIENTED. VS STABLE. O2 SATS REMAIN ABOVE 90% ON 3L NC. EXP AND INSP WHEEZES BILATERALLY. HR NSR. PT DENIES ANY PAIN. PT HAS NONPRODUCTIVE COUGH. PT DYSPNEIC WITH EXERTION. WILL CONTINUE TO MONITOR AND REPORT TO ONCOMING RN. CALL LIGHT IN REACH.
[2019-09-24 03:12] LABS: PCO2 Arterial 40.4 mmHg (35-45); PO2 Arterial 85.7 mmHg (80-100)
--- NOTE | 2019-09-24 07:20 | NUR ---
SHIFT SUMMARY ASSUMED CARE AT 1900, PT AWAKE AND ALERT IN BED, DENIES PAIN, SHALLOW BREATHS, O2 SATURATION 97% ON 3L NC. MEDICATED AND TREATED PATIENT PER EMAR AND PROTOCOL. PATIENT WALKED TO BATHROOM WITH MINIMAL HELP AND 4WW. ALL VSS T/O SHIFT, AND PATIENT MAINTAINED O2 SATURATION ABOVE 93% T/O SHIFT. AT AROUND MIDNIGHT PATIENT AWOKE C/O SOB DISPLAYING DYSPNEA, AND WAS FITTED WITH BIPAP PER RT, AFTER WHICH SHE SLEPT W/O INTERRUPTION FOR REMAINDER OF SHIFT. PASSED CARE AND REPORT TO ONCOMING SHIFT AT 0700, CALL LIGHT IN REACH
--- NOTE | 2019-09-24 07:40 | NUR ---
ASSUMED PATIENT CARE. PATIENT RESTING COMFORTABLY IN BED, BIPAP ON WITH EQUAL BILATERAL CHEST RISE. PATIENT INTERACTING WITH STAFF DURING HAND-OFF, NO SIGNS OF ACUTE DISTRESS. WCTM.
--- NOTE | 2019-09-24 13:45 | NUR ---
States pain headache as well as muscles in abdomen from coughing. Tylenol given as well as pillow for her to spint the muscles during coughing.
--- NOTE | 2019-09-24 15:18 | NUR ---
Patient's spouse, Iron, tells me that patient has not had much improvement and patient tries to talk but is still struggling with air hunger. I provide a blessing and a calming presence and will continue to remain available to patient and family.
--- NOTE | 2019-09-24 18:46 | NUR ---
PATIENT CONTINUES TO COMPLAIN OF ABDOMINAL AND CHEST WALL PAIN FROM WORK OF COUGHING. PATIENT ABLE TO MAINTAIN OXYGEN SATS IN THE 90S ON NASAL CANNULA, DID NOT NEED BIPAP THIS SHIFT. TYLENOL DID NOT HELP WITH PAIN, NORCO ADDED AND WORKED WELL. PATIENT COMPLAINS OF HEADACHE THAT HAS BEEN GOING ON FOR PAST SEVERAL DAYS AND EXPRESSES VISUAL CHANGES IN PERIPHERAL VISION. PATIENT SAYS THAT PERIPHERAL VISION CAN BE DARKENED ON THE LEFT AND ON THE RIGHT AT DIFFERENT TIMES. PATIENT HAS BEEN INCREASINGLY HYPERTENSIVE THIS AFTERNOON.
[2019-09-24 21:33] LABS: Vancomycin, Trough 14.2 ug/mL (5.0-10.0)
[2019-09-25 03:47] LABS: BASOPHILS ABSOLUTE AUTO 0.03 K/mm3 (0.00-0.23); BASOPHILS PERCENT AUTO 0 % (0-2); EOSINOPHILS PERCENT AUTO 0 % (0-6); Hematocrit 34.1 % (33.0-51.0); Hemoglobin 10.9 g/dL (11.5-16.0); IMMATURE GRAN ABSOLUTE AUTO 0.65 K/mm3 (0.00-0.10); IMMATURE GRAN PERCENT AUTO 4 % (0-1); LYMPHOCYTES ABSOLUTE AUTO 0.66 K/mm3 (0.84-5.20); LYMPHOCYTES PERCENT AUTO 4 % (21-46); MONOCYTES ABSOLUTE AUTO 0.32 K/mm3 (0.16-1.47); MONOCYTES PERCENT AUTO 2 % (4-13); Mean Corpuscular HGB 29.7 pg (26.0-34.0); Mean Corpuscular Volume 93 fL (80-100); Mean Platelet Volume 11.8 fL (9.1-12.4); NEUTROPHILS ABSOLUTE AUTO 17.17 K/mm3 (1.96-9.15); NEUTROPHILS PERCENT AUTO 91 % (41-73); Platelet Count 197 K/mm3 (150-400); RDW Coefficient Variation 13.1 % (11.7-14.2); RDW Standard Deviation 44.7 fL (35.1-46.3); Red Blood Cell Count 3.67 M/mm3 (3.80-5.20); White Blood Cell Count 18.83 K/mm3 (4.00-11.30)
[2019-09-25 04:05] LABS: Bun/Creatinine Ratio 32.7 (12.0-20.0); Calcium, Blood 8.8 mg/dL (8.5-10.1); Creatinine, Blood 1.04 mg/dL (0.40-1.00); Potassium, Blood 4.7 mmol/L (3.5-5.5)
--- NOTE | 2019-09-25 04:28 | NUR ---
SHIFT SUMMARY PT A&O X4. BP ELEVATED, OTHERWISE VSS. MONITOR SHOWS NSR, HR 70's. LUNG SOUNDS COARSE. SPO2 > 92% ON 4L NC. BIPAP AT BEDSIDE, UNUSED THIS SHIFT. PT C/O RIB PAIN W/ OCCASSIONAL NONPRODUCTIVE COUGH. PT REPORTS OVERALL IMPROVEMENT W/ BREATHING. WILL CONTINUE TO MONITOR AND PROVIDE CARE UNTIL REPORT OFF TO DAY SHIFT RN.
--- NOTE | 2019-09-25 08:00 | NUR ---
pt sitting on the side of the bed, spouce in room, a/ox3, pleasant and cooperative with care, states she feels pretty rough, but is getting better, lungs are course t/o, resp even and mildly labored, has a freq productive cough of yellow sputum, is currently on 4 liters 02 via n/c, hrr, tele in place running sr in the 70's, no edema noted, ppp+1, cap refill <3sec, vs stable, afebrile, iv site to left hand is s.l. clear and patent, btx4, abd flat soft nontender, voids without diff, skin c/w/d, reports last bm a few days ago, fausto, up with sba using a walker, zina, call light in reach.
--- NOTE | 2019-09-25 11:39 | NUR ---
pt sitting up on the side of the bed recieving a breathing tx, she had a shower this am, and feels much better from that, v.s. stable, afebrile, no further needs at this time. call light in reach.
--- NOTE | 2019-09-25 19:07 | NUR ---
pt laying in bed, Dr. Ordoñez was in to see her, no complaints or changes this shift, will be having a cta this evening. call light in reach.
[2019-09-26 03:54] LABS: BASOPHILS ABSOLUTE AUTO 0.05 K/mm3 (0.00-0.23); BASOPHILS PERCENT AUTO 0 % (0-2); EOSINOPHILS ABSOLUTE AUTO 0.03 K/mm3 (0.00-0.68); EOSINOPHILS PERCENT AUTO 0 % (0-6); Hematocrit 35.3 % (33.0-51.0); Hemoglobin 11.2 g/dL (11.5-16.0); IMMATURE GRAN ABSOLUTE AUTO 0.55 K/mm3 (0.00-0.10); IMMATURE GRAN PERCENT AUTO 3 % (0-1); LYMPHOCYTES ABSOLUTE AUTO 2.89 K/mm3 (0.84-5.20); LYMPHOCYTES PERCENT AUTO 15 % (21-46); MONOCYTES PERCENT AUTO 5 % (4-13); Mean Corpuscular HGB 29.5 pg (26.0-34.0); Mean Corpuscular HGB Conc 31.7 g/dL (31.5-36.5); Mean Corpuscular Volume 93 fL (80-100); Mean Platelet Volume 11.9 fL (9.1-12.4); NEUTROPHILS ABSOLUTE AUTO 15.24 K/mm3 (1.96-9.15); NEUTROPHILS PERCENT AUTO 77 % (41-73); Platelet Count 225 K/mm3 (150-400); RDW Coefficient Variation 13.1 % (11.7-14.2); RDW Standard Deviation 44.1 fL (35.1-46.3); White Blood Cell Count 19.66 K/mm3 (4.00-11.30)
[2019-09-26 04:08] LABS: Bun/Creatinine Ratio 26.9 (12.0-20.0); Creatinine, Blood 1.08 mg/dL (0.40-1.00); Potassium, Blood 4.2 mmol/L (3.5-5.5)
--- NOTE | 2019-09-26 05:00 | NUR ---
SHIFT SUMMARY PT A&O X4. VSS. MONITOR SHOWS NSR, HR 60's-80's. LUNG SOUNDS COARSE, DIM IN BASES. SPO2 > 92% ON 4L NC TITRATED TO 2L NC THIS SHIFT W/ PT TOLERATING WELL. PT W/ OCCASSIONAL NONPRODUCTIVE COUGH. CT CHEST COMPLETED THIS SHIFT. PT C/O HEADACHE, MEDICATED W/ PRN PAIN MEDICATION PER EMAR/PT REQUEST X1 THIS SHIFT. WILL CONTINUE TO MONITOR AND PROVIDE CARE UNTIL REPORT OFF TO DAY SHIFT RN.
[2019-09-26 13:50] LABS: Adenovirus Not Detected (NOT DETECT); Bordetella pertussis Not Detected (NOT DETECT); Chlamydophila pneumoniae Not Detected (NOT DETECT); Coronavirus 229E Not Detected (NOT DETECT); Coronavirus HKU1 Detected (NOT DETECT); Coronavirus NL63 Not Detected (NOT DETECT); Coronavirus OC43 Not Detected (NOT DETECT); Human Metapneumovirus Not Detected (NOT DETECT); Human Rhinovirus/Enterovirus Not Detected (NOT DETECT); Influenza A Not Detected (NOT DETECT); Influenza A/2009-H1 Detected (NOT DETECT); Influenza A/H1 Not Detected (NOT DETECT); Influenza A/H3 Not Detected (NOT DETECT); Influenza B Not Detected (NOT DETECT); Mycoplasma pneumoniae Not Detected (NOT DETECT); Parainfluenza Virus 1 Not Detected (NOT DETECT); Parainfluenza Virus 2 Not Detected (NOT DETECT); Parainfluenza Virus 3 Not Detected (NOT DETECT); Parainfluenza Virus 4 Not Detected (NOT DETECT); Respiratory Syncytial Virus Not Detected (NOT DETECT)
--- NOTE | 2019-09-26 18:00 | NUR ---
PT FEELING BETTER THIS AFTERNOON, STATES THE NAUSIA IS PRETTY MUCH GONE. NO FURTHER COMPLAINTS OR NEEDS. CALL LIGHT IN REACH.
--- NOTE | 2019-09-26 19:30 | NUR ---
ASSUMED CARE APPROXIMATELY 1900; PT A&O; CONVERSING W/ STAFF; RT AT BEDSIDE FOR BREATHING TX; PT STATES SHE HAS HEADACHE AND RIB PAIN FROM COUGHING; MEDICATE PER EMAR; PT DENIES CHEST PAIN; NSR NOTED ON MONITOR W/ HR IN 60'S; 02 SATS >92 ON 4L NC; DENIES NEEDS AT THIS TIME; CALL LIGHT IN REACH; BED IN LOWEST POSITION.
[2019-09-27 03:58] LABS: BASOPHILS ABSOLUTE AUTO 0.02 K/mm3 (0.00-0.23); BASOPHILS PERCENT AUTO 0 % (0-2); EOSINOPHILS ABSOLUTE AUTO 0.08 K/mm3 (0.00-0.68); EOSINOPHILS PERCENT AUTO 1 % (0-6); Hematocrit 32.5 % (33.0-51.0); Hemoglobin 10.4 g/dL (11.5-16.0); IMMATURE GRAN ABSOLUTE AUTO 0.33 K/mm3 (0.00-0.10); IMMATURE GRAN PERCENT AUTO 2 % (0-1); LYMPHOCYTES ABSOLUTE AUTO 1.94 K/mm3 (0.84-5.20); LYMPHOCYTES PERCENT AUTO 14 % (21-46); MONOCYTES ABSOLUTE AUTO 0.72 K/mm3 (0.16-1.47); MONOCYTES PERCENT AUTO 5 % (4-13); Mean Corpuscular HGB 30.1 pg (26.0-34.0); Mean Corpuscular Volume 94 fL (80-100); Mean Platelet Volume 11.6 fL (9.1-12.4); NEUTROPHILS ABSOLUTE AUTO 11.31 K/mm3 (1.96-9.15); NEUTROPHILS PERCENT AUTO 79 % (41-73); Platelet Count 182 K/mm3 (150-400); RDW Coefficient Variation 13.1 % (11.7-14.2); RDW Standard Deviation 45.3 fL (35.1-46.3); Red Blood Cell Count 3.45 M/mm3 (3.80-5.20)
[2019-09-27 04:17] LABS: Albumin/Globulin Ratio 0.9 (0.8-1.8); Bilirubin, Total 0.3 mg/dL (0.1-1.0); Bun/Creatinine Ratio 26.3 (12.0-20.0); Calcium, Blood 8.4 mg/dL (8.5-10.1); Creatinine, Blood 1.14 mg/dL (0.40-1.00); Globulin, Blood 3.3 g/dL (2.2-4.0); Phosphorus, Blood 4.5 mg/dL (2.5-4.9); Potassium, Blood 4.3 mmol/L (3.5-5.5); Total Protein, Blood 6.3 g/dL (6.4-8.2)
--- NOTE | 2019-09-27 06:03 | NUR ---
SHIFT SUMMARY PT A&O; COMPLIANT W/ CARE; PROMINANT COUGH; PT C/O PAIN; HEADACHE; RIBS; BACK; R/T COUGHING; PT SPLINTING W/ PILLOW; MEDICATED PER EMAR; O2 SATS > 92 ON 4L NC; NSR NOTED ON MONITOR; PT CURRENTLY ALERT AND WATCHING TV; CALL LIGHT IN REACH; BED IN LOWEST POSITION; WILL CONTINUE TO MONITOR CLOSELY UNTIL HAND OFF TO DAY SHIFT RN.
--- NOTE | 2019-09-27 18:23 | NUR ---
SHIFT SUMMARY PT REMAINS A&O X3, VSS, ON 4L NC THROUGH MOST OF THE DAY BUT DID END UP BEING PUT ON THE BIPAP DUE TO INCREASED RESP EFFORT. LUNG SOUNDS REMAIN COURSE/MOIST, PT IS ABLE TO CLEAR SMALL AMOUNTS OF SECRETIONS. RT PLACED THE PERCUSSION VEST ON HER TODAY, SHE IS USING HER I/S & FLUTTER VALVE WITH NO PROBLEMS. IV ABX INFUSING PER EMAR. PAIN MEDICATED PRN, PT IS A STAND BY ASSIST TO BSC DUE TO WEAKNESS. CALL LIGHT IN REACH, WCHAFSA AND REPORT TO MORAIMA RN.
--- NOTE | 2019-09-27 19:30 | NUR ---
ASSUMED CARE APPROXIMATELY 1900; PT A&O; VSS; O2 SATS >93 ON 2L NC; PT STATES SHE HAD A ROUGH DAY, BUT FEELS THE BIPAP HELPED EARLIER; LUNG SOUNDS COURSE W/ EXP WHEEZES; CURRENTLY REFUSES BIPAP; STATES SHE MAY WEAR IT LATER FOR SLEEP; DENIES CHEST PAIN; C/O 10 OF 10 PAIN IN RIBS, ABDOMEN AND BACK DUE TO COUGH; PT USING PILLOW FOR SPLINTING; MEDICATED PER EMAR; PT SEEMS IN GOOD SPIRITS DURING CONVERSATIONS; CALL LIGHT IN REACH; BED IN LOWEST POSITION.
--- NOTE | 2019-09-28 05:30 | NUR ---
SHIFT SUMMARY PT A&O; PLEASANT & COMPLIANT W/ CARE; PT SHARED STORIES OF HER SPOUSE AND PETS AT HOME; PT ON 2L NC; O2 SATS >92; PT WORE BIPAP FOR 2 HOURS WHILE SLEEPING; DECAF COFFEE BROUGHT TO PT; DENIES OTHER NEEDS AT THIS TIME; CALL LIGHT IN REACH; BED IN LOWEST POSITION; WILL MONITOR CLOSELY UNTIL HAND OFF TO DAY SHIFT RN.
--- NOTE | 2019-09-28 09:57 | NUR ---
CARE ASSUMED ASSESSMENT COMPLETED. SPO2 95% 2L/NC, PT REPORTS MINIMAL SOB AT REST, MODERATE WITH EXERTION. LS WITH EXPIRATORY WHEEZES T/O, COARSE IN RIGHT BASE, PT REPORTS YELLOW SPUTUM PRODUCTION. VSS, PT TOLERATED BREAKFAST WELL, ASSISTED TO BR FOR SMALL BM AND VOID, GAIT WEAK ON LEFT SIDE FROM PREVIOUS STROKE, STEADY WITH WALKER AND SBA. PT BACK TO BED, AM MEDS GIVEN, ZOSYN INFUSING. RT IN TO ASSESS, BIPAP ON AT 0945, SETTINGS 12/5, 30% FIO2. PT REPORTS PAIN IN RIBS SECONDARY TO COUGH, WILL MEDICATE ORDERED. PT LYING IN BED RESTING, DENIES NEEDS.
--- NOTE | 2019-09-28 13:18 | NUR ---
UPDATE PT AMBULATING TO BR WITH MINIMAL SOB, NO DESATS. BIPAP WAS ON THIS MORNING AFTER BREAKFAST WHILE PATIENT RESTED, THEN TAKEN OFF FOR LUNCH, PT TOELRATING 2L/NC WELL WITH SPO2 93-94%. PT CONTINUES TO COUGH AND HAVE RIB/ABDOMINAL PAIN SECONDARY TO COUGHING, MEDICATED WITH PAIN MED AND TESSALON PRN. TOLERATING FOOD WELL, SITTING AT BEDSIDE TO EAT, IN ROOM VISITING. DR.'S PHAM AND GALINA IN TO SEE PT, NEW PRN ORDERS RECEIVED, NO CHANGES TO PRN BIPAP SETTINGS. PT DENIES NEEDS AT THIS TIME.
--- NOTE | 2019-09-28 18:33 | NUR ---
END OF SHIFT PT RESTING IN BED AT THIS TIME, SPO2 MID 90'S ON 2L/NC, PT AMBULATES IN ROOM WITH WALKER AND SBA WITH MINIMAL SOB, NO DESATS TODAY. PT WORE BIPAP TODAY OFF AND ON PER HER REQUEST, TOLERATES WELL. VSS, HR 70'S NSR PER TELE. LS WHEEZY AND SLIGHTLY COARSE, PT CONTINUES TO COUGH UP YELLOW SPUTUM. MEDICATED FOR COUGH PRN, GOOD RESULTS FROM ROBITUSSIN WITH CODIENE. PT PLEASANT AND COOEPRATIVE T/O SHIFT, ORIENTED X4. REPORT TO ONCOMING SHIFT.
--- NOTE | 2019-09-28 20:42 | NUR ---
ASSUMED CARE APPROXIMATELY 1900; PT A&O; SMILING AT STAFF; APPEARING MORE COMFORTABLE THAN PREVIOUS SHIFT; O2 SATS >93 ON 2L NC; LUNG SOUNDS COURSE W/ WHEEZE; VSS; DECAF COFFEE BROUGHT TO PT; DENIES OTHER NEEDS; CALL LIGHT IN REACH; BED IN LOWEST POSITION
[2019-09-29 03:55] LABS: BASOPHILS ABSOLUTE AUTO 0.03 K/mm3 (0.00-0.23); BASOPHILS PERCENT AUTO 0 % (0-2); EOSINOPHILS ABSOLUTE AUTO 0.22 K/mm3 (0.00-0.68); EOSINOPHILS PERCENT AUTO 2 % (0-6); Hematocrit 32.4 % (33.0-51.0); Hemoglobin 10.3 g/dL (11.5-16.0); IMMATURE GRAN ABSOLUTE AUTO 0.15 K/mm3 (0.00-0.10); IMMATURE GRAN PERCENT AUTO 1 % (0-1); LYMPHOCYTES ABSOLUTE AUTO 2.21 K/mm3 (0.84-5.20); LYMPHOCYTES PERCENT AUTO 15 % (21-46); MONOCYTES ABSOLUTE AUTO 0.65 K/mm3 (0.16-1.47); MONOCYTES PERCENT AUTO 4 % (4-13); Mean Corpuscular HGB 30.2 pg (26.0-34.0); Mean Corpuscular HGB Conc 31.8 g/dL (31.5-36.5); Mean Corpuscular Volume 95 fL (80-100); Mean Platelet Volume 11.5 fL (9.1-12.4); NEUTROPHILS ABSOLUTE AUTO 11.68 K/mm3 (1.96-9.15); NEUTROPHILS PERCENT AUTO 78 % (41-73); Platelet Count 176 K/mm3 (150-400); RDW Coefficient Variation 12.9 % (11.7-14.2); RDW Standard Deviation 44.6 fL (35.1-46.3); Red Blood Cell Count 3.41 M/mm3 (3.80-5.20); White Blood Cell Count 14.94 K/mm3 (4.00-11.30)
[2019-09-29 04:17] LABS: Albumin, Blood 3.2 g/dL (3.4-5.0); Anion Gap 3 mmol/L (6-16); Blood Urea Nitrogen 25 mg/dL (8-24); Bun/Creatinine Ratio 24.8 (12.0-20.0); CO2, Blood 31 mmol/L (21-32); Calcium, Blood 8.8 mg/dL (8.5-10.1); Chloride, Blood 105 mmol/L (98-108); Creatinine, Blood 1.01 mg/dL (0.40-1.00); Glomerular Filtration Rate 57 (60-); Glucose, Blood 107 mg/dL (70-99); Phosphorus, Blood 3.5 mg/dL (2.5-4.9); Potassium, Blood 3.8 mmol/L (3.5-5.5); Sodium, Blood 139 mmol/L (136-145)
--- NOTE | 2019-09-29 05:02 | NUR ---
SHIFT SUMMARY PT A&O; PLEASANT & COMPLIANT W/ CARE; VSS; O2 SATS >93 ON 2L NC; BIPAP PRN; PT USED BIPAP A COUPLE HOURS IN NIGHT; MEDICATED PER EMAR FOR PAIN DUE TO COUGHING STRAIN; ORDER FOR COUGH SYRUP PT STATES HAS HELPED; DECREASED COUGHING SPELLS NOTED DURING SHIFT; SBA TO BATHROOM W/ FWW; PT CALLS APPROPRIATELY FOR ASSISTANCE; DENIES NEEDS AT THIS TIME; CALL LIGHT IN REACH; BED IN LOWEST POSITION; WILL CONTINUE TO MONITOR CLOSELY UNTIL HAND OFF TO DAY SHIFT RN.
--- NOTE | 2019-09-29 10:08 | NUR ---
NOTE PT AWAKE AND ALERT. SITTING ON THE SIDE OF THE BED CRYING. SHE'S FEELING A BIT HOPELESS AND LONELY. SHE MISSES HER PUPPIES AND BUNNY. SPENT SOME TIME WITH HER. LET HER CRY AND TALK. MEDICATED FOR PAIN. GOT HER A RECLINER AT BEDSIDE. SITTING UP. CONTINUE POT.
--- NOTE | 2019-09-29 12:39 | NUR ---
Patient is sitting on a chair and alert. Patient's spouse, Iron, is present in the room. Patient tells me of the medical issues, the physical and emotional exhaustion she feels and her fears of going in public after she does recover. Iron talks about patient's medical history and all patient has overcome in the past. We talk about how the same courage and stanton she had to get through in the past will serve her well on this go around. Patient gets teary eyed at times when talking about her exhaustion and why she is going through this. I listen empathically, normalize patient's experience, reinforce helpful attitudes and practices and provide pastoral guidance and a calming presence. Patient responds well and shows signs of renewed hope. I will continue to remain available to patient and family.
--- NOTE | 2019-09-30 06:00 | NUR ---
SHIFT SUMMARY. UP IN CHAIR UNTIL 2229. WORE BIPAP FOR ABOUT 3 HR. WHEN AWAKE ALOT OF COUGHING. HACKY WHEEZY COUGH. FLUTTER VALVE USED ALOT,. ANAD PROMOTES COUGH. 2L NC ALL NOC WHEN NOT BIPAP. PAIN BROUGHT BACK TO BASELINE . REPORTED SORE RIB MUSCLES AND SMITH. 2 VERY SCANT NOSE BLEEDS TONIGHT. HELD SOME ICE IN PLACE FOR SHORT TIME. SUBSIDED. 6 HR AND NEED FOR SAME TYPE OF PAIN EARLIER. COUGH MED W/ CODEINE ASSISTS . O2 OFF FOR SHORT TIME TO RESOLVE NOSE3 BLEED . AND SATS HELD > 90. NOTED MD NOTE FOR [employer]. REPORTED POST OOB TO C LEGS WERE BURNING AND FELT ITCHY. NOTHING NOTED,. MAYBE A SLIGHT RED KRISHNAMURTHY ON RIGHT AND PT RUBBING THIS LEG. WILL CONT TO OBSERVE CLOSELY. LATER DECIDED TO GIVE BENEDRYL WHEN BURNING SUBSIDED MOSTLY BUT STILL PRESENT. STILL NO SKIN LESION OR RASH NOTED.
--- NOTE | 2019-09-30 17:51 | NUR ---
SHIFT SUMMARY PT A&Ox4; CALM AND COOPERATIVE WITH CARE. PT UP IN RECLINER; SBA TO BSC. PT REPORTS UPPER ABD/LOWER RIB PAIN D/T COUGHING; MEDICATIONS x2 WITH NORCO. PT HAS HARSH COUGH, MEDICATED WITH CODEINE x1 WITH POSTIIVE RESULTS. PT ON 2L O2 VIA NC THIS AM, TITRATED TO RA SPO2 88-92% ON RA. LS COARSE T/O. PT RECEIVED IV STEROIDS AND LASIX DURING SHIFT. PT DENIES NAUSEA AND DIZZINESS AND LIGHTHEADEDNESS T/O SHIFT. VSS. NO OTHER ACUTE CHANGES NOTED DURING SHIFT. WILL CONTINUE TO MONITOR UNITL REPORT GIVEN TO ONCOMING RN.
[2019-10-01 04:14] LABS: BASOPHILS ABSOLUTE AUTO 0.01 K/mm3 (0.00-0.23); BASOPHILS PERCENT AUTO 0 % (0-2); EOSINOPHILS PERCENT AUTO 0 % (0-6); Hematocrit 32.3 % (33.0-51.0); Hemoglobin 10.3 g/dL (11.5-16.0); IMMATURE GRAN PERCENT AUTO 1 % (0-1); LYMPHOCYTES PERCENT AUTO 3 % (21-46); MONOCYTES ABSOLUTE AUTO 0.07 K/mm3 (0.16-1.47); MONOCYTES PERCENT AUTO 1 % (4-13); Mean Corpuscular HGB Conc 31.9 g/dL (31.5-36.5); Mean Corpuscular Volume 94 fL (80-100); Mean Platelet Volume 11.9 fL (9.1-12.4); NEUTROPHILS ABSOLUTE AUTO 11.09 K/mm3 (1.96-9.15); NEUTROPHILS PERCENT AUTO 95 % (41-73); Platelet Count 162 K/mm3 (150-400); RDW Coefficient Variation 12.4 % (11.7-14.2); Red Blood Cell Count 3.43 M/mm3 (3.80-5.20); White Blood Cell Count 11.67 K/mm3 (4.00-11.30)
[2019-10-01 04:37] LABS: Alanine Aminotransfer (ALT/SGP 61 U/L (12-78); Albumin, Blood 3.2 g/dL (3.4-5.0); Albumin/Globulin Ratio 0.9 (0.8-1.8); Alk Phos 61 U/L (50-136); Anion Gap 5 mmol/L (6-16); Aspartate Aminotrans (AST/SGOT 33 U/L (12-37); Bilirubin, Total 0.2 mg/dL (0.1-1.0); Blood Urea Nitrogen 32 mg/dL (8-24); Bun/Creatinine Ratio 33.5 (12.0-20.0); CO2, Blood 31 mmol/L (21-32); Calcium, Blood 9.1 mg/dL (8.5-10.1); Chloride, Blood 100 mmol/L (98-108); Creatinine, Blood 0.96 mg/dL (0.40-1.00); Globulin, Blood 3.6 g/dL (2.2-4.0); Glomerular Filtration Rate >60 (60-); Glucose, Blood 288 mg/dL (70-99); Potassium, Blood 4.7 mmol/L (3.5-5.5); Sodium, Blood 136 mmol/L (136-145); Total Protein, Blood 6.8 g/dL (6.4-8.2)
--- NOTE | 2019-10-01 05:11 | NUR ---
SHIFT SUMMARY PT SLEEPING IN ROOM COMFORTABLY AT THIS TIME. NO ACUTE CHANGES IN STATUS T/O NIGHT. PT SLEPT WELL. RESP SLIGHTLY TACHY, 2LNC PLACED ON PT D/T LOW SATS WHILE SITTING UPRIGHT IN RECLINER. SATS >92% ON 2LNC. PT WORE BIPAP ONCE IN BED DURING SLEEP. TOLERATED WELL. PT DENIED OTHER NEEDS. ABLE TO STAND AND USE BSC AT BEDSIDE W/O ASSIST. DENIED OTHER NEEDS. CALL LIGHT IN REACH.
--- NOTE | 2019-10-01 16:20 | NUR ---
SHIFT SUMAMRY PT A&Ox4; CALM AND COOPERATIVE WITH CARE. UP IN RECLINER FOR MAJORITY OF SHIFT. PT REPORTS LOWER RIB AND ABD PAIN, STATES IT IS FROM COUGHING, MEDICATED x2 WITH POSITIVE RESULTS, USING HEATING PAD ON ABD FOR PAIN RELEIF WITH POSTIIVE RESULTS. PT SOB WITH EXERTION, 1L O2 VIA NC T/O SHIFT, SPO2 88-94 DURING SHIFT, LS COARSE WITH DIM BASES T/O SHIFT. PT ENCOURAGED TO USE FLUTTER VALVE AT BEDSIDE. PT RECEIVING BREATHING TREATMENT PER RT. PT DENIES NAUSEA AND DIZZINESS. PT RECEIVING IV LASIX. TRANSITIONED TO PREDNISONE. VSS. NO OTHER ACUTE CHANGES NOTED. WILL CONTINUE TO MONITOR UNTIL REPORT GIVEN TO ONCOMING RN
--- NOTE | 2019-10-01 19:02 | NUR ---
ASSUMED CARE APPROXIMATELY 1700; PT A&O; O2 SATS >90 ON RA; USES 1-2L NC FOR AMBULATING OR WORK OF BREATHING; DENIES CHEST PAIN; VSS; SBA W/FWW TO BATHROOM; MED STATUS NO TELE; REPORT GIVEN TO MEDICAL NURSE; ALL BELONGINGS PUT INTO BAGS AND TAKEN W/ PT TO ROOM 313
--- NOTE | 2019-10-02 07:15 | NUR ---
NOC SHIFT SUMMARY PT IS PLEASANT AND COOPERATIVE WITH CARE. SLEEP STUDY DONE THIS NIGHT. SLEPT MOST OF NIGHT. TREATED FOR PAIN PER EMAR. HAS CONTINUED CHEST PAIN RELATED TO COUGHING. REPORT TO ONCOMING RN.
--- NOTE | 2019-10-02 18:15 | NUR ---
SHIFT SUMMARY PT ALERT AND ORIENTED THIS SHIFT. PT UP IN BEDSIDE RECLINER FOR MUCH OF THIS SHIFT. PT'S SPOUSE HAS BEEN IN THE ROOM FOR MUCH OF THIS SHIFT. PT AMBULATED ONCE TO THE BATHROOM AND ONCE WITH Pt THIS SHIFT. PT'S PAIN WAS NOT RESOLVING WITH SANJEEV, DR SANCHEZ CONTACTED, SANJEEV DC'D OXYCODONE PRN ORDERED. PT'S PAIN DOWN TO 3/10 WITH OXYCODONE. PT CURRENTLY UP IN CHAIR EATING DINNER.
--- NOTE | 2019-10-03 07:31 | NUR ---
NOC SHIFT SUMMARY PT PLEASANT AND COOPERATIVE WITH CARE. HAD SIGNIFICANT PAIN IN CHEST FROM ALL THE COUGHING SHE HAS BEEN DOING. TREATED PER EMAR TO GOOD EFFECT. PT WAS ABLE TO SLEEP FOR MUCH OF THE NIGHT. REMAINS AAOX4. RESP ARE A BIT SHALLOW DEEP BREATHING IS PAINFUL. VSS. WAS TREATED FOR HTN THIS MORNING. RECIEVED CALL FROM KENDELL LOVING THIS MORNING. PT IS ABLE TO BE REMOVED FROM ISO. REPORT TO HELEN LOVING.
[2019-10-03] MEDS ORDERED: MONT10T PO (14:51)
[2019-10-03] MEDS ORDERED: DEXT30SU PO (14:51)
[2019-10-03] MEDS ORDERED: CEFD300 PO (14:51)
[2019-10-03] MEDS ORDERED: ROXICODONE5 MG PO (14:52)
[2019-10-03] MEDS ORDERED: Prednisone10 MG PO (14:53)
[2019-10-03] MEDS ORDERED: FURO20 PO (14:53)
--- NOTE | 2019-10-03 19:52 | NUR ---
SHIFT SUMMARY: NO ACUTE CHANGES TO REPORT THIS SHIFT. PT A&O; CALM AND COOPERATIVE WITH CARE. MEDICATED FOR PAIN PER EMAR. HX CVA c L LEG WEAKNESS; PATIENT UP c 1-ASSIST c FWW & GAIT BELT. EXPECTED D/C TO [facility] 10/04. REPORT GIVEN TO ONCOMING RN.
--- NOTE | 2019-10-04 05:48 | NUR ---
73 year old female who has been admitted since 09/22/19 with influenza A and coronavirus [id number] has complaints of bilat rib pain from cough as well as posterior head pain. she was requesting pain meds for 10/10 pain q 3 hours and medicated several times with 10 mg oxycodone and tylenol 650 mg . She was medicated x 1 with iv zofran because when she didn't recieve oxycodone at the 3 hour ayden she began retching. antiemetic with helpful effect. MD has scheduled antianxiety rx at with only minimal effect. Planning on dc to [facility] today. on room air , no longer in isolation. Amb in room with minimla assist. weepy and emotional at times.
--- NOTE | 2019-10-04 17:19 | NUR ---
SHIFT SUMMARY- PT IS A/O PLEASANT AND COOPERATVE. SHE IS PENDING DISCHARGE TO SNF. SHE IS AMBULATING WITH ASSISTANCE TO THE RESTROOM AND IS UNSTEADY ON HER FEET. HER LUNG SOUNDS ARE COARSE, AND SHE HAS AN INTERMITENT COUGH THAT IS HARSH AND DRY. SHE REPORTS HAVING RIB AND BACK PAIN FROM COUGHING WHICH IS BEING TREATED PER MAR. SHE IS RECIEVING COUGH SYRUP WHICH SHE REPORTS HELPS WITH THE COUGHING. PT TOOK A SHOWER THIS MORNING. SHE IS EATING AND DRINKING WELL
--- NOTE | 2019-10-05 05:15 | NUR ---
SHIFT SUMMARY PT PLEASANT AND COOPERATIVE. SLEPT OFF AND ON THROUGHOUT THE NIGHT. PT ON 3 L O2 NC WITH O2 SATS IN THE MID 90'S. PT HAS HARSH FREQUENT NAGGING COUGH. PT HAS SEVERE PAIN IN RIBS WHEN COUGHING. MEDICATED PER EMAR W/ 10 MG ROXICODONE AND 10 ML GUAIFENESIN/CODEINE. PT DID HAVE ONE EPISODE OF VOMITING AFTER HARSH COUGHING. MEDICATED X 1 W/ ZOFRAN. OTHERWISE PT SLEPT OFF AND ON THROUGHOUT THE NIGHT. NO ACUTE CHANGES THIS SHIFT. VITAL SIGNS STABLE. WILL CONTINUE TO MONITOR.
--- NOTE | 2019-10-05 13:19 | NUR ---
PT REPORTS FEELING CHILLS, SHE IS HAVING SOME NEW CONFUSION, SHE IS INCREASINGLY UNSTABLE ON HER FEET. RT EVALUATED AND PUT HER ON 2L O2. UPDATED DR. SANCHEZ ON PT CONDITION. CHEST XRAYS ORDERED THIS MORNING. WILL CONTUNUE TO MONITOR.
[2019-10-05 16:10] LABS: BASOPHILS ABSOLUTE AUTO 0.01 K/mm3 (0.00-0.23); BASOPHILS PERCENT AUTO 0 % (0-2); EOSINOPHILS PERCENT AUTO 0 % (0-6); Hemoglobin 10.1 g/dL (11.5-16.0); IMMATURE GRAN PERCENT AUTO 1 % (0-1); LYMPHOCYTES ABSOLUTE AUTO 0.47 K/mm3 (0.84-5.20); LYMPHOCYTES PERCENT AUTO 3 % (21-46); MONOCYTES ABSOLUTE AUTO 0.13 K/mm3 (0.16-1.47); MONOCYTES PERCENT AUTO 1 % (4-13); Mean Corpuscular HGB 30.3 pg (26.0-34.0); Mean Corpuscular HGB Conc 32.6 g/dL (31.5-36.5); Mean Corpuscular Volume 93 fL (80-100); Mean Platelet Volume 11.7 fL (9.1-12.4); NEUTROPHILS ABSOLUTE AUTO 14.93 K/mm3 (1.96-9.15); NEUTROPHILS PERCENT AUTO 96 % (41-73); Platelet Count 193 K/mm3 (150-400); RDW Coefficient Variation 12.6 % (11.7-14.2); RDW Standard Deviation 43.5 fL (35.1-46.3); Red Blood Cell Count 3.33 M/mm3 (3.80-5.20); White Blood Cell Count 15.64 K/mm3 (4.00-11.30)
[2019-10-05 16:30] LABS: Albumin, Blood 3.3 g/dL (3.4-5.0); Bilirubin, Total 0.4 mg/dL (0.1-1.0); Bun/Creatinine Ratio 38.8 (12.0-20.0); Calcium, Blood 8.4 mg/dL (8.5-10.1); Creatinine, Blood 1.16 mg/dL (0.40-1.00); Globulin, Blood 3.2 g/dL (2.2-4.0); Potassium, Blood 4.3 mmol/L (3.5-5.5); Total Protein, Blood 6.5 g/dL (6.4-8.2)
[2019-10-05 16:57] LABS: PCO2 Arterial 50.5 mmHg (35-45); PO2 Arterial 72.8 mmHg (80-100)
[2019-10-05 17:05] LABS: Source, Urine Catheter
[2019-10-05 17:08] LABS: Bilirubin, Urine Neg (Neg); Blood, Urine Neg (Neg); Glucose Qualitative, Urine Neg (Neg); Ketones, Urine Neg (Neg); Leukocyte Esterase, Urine Neg (Neg); Nitrite, Urine Neg (Neg); Protein, Urine Neg (Neg); Specific Gravity, Urine 1.015 (1.003-1.022); Urobilinogen, Urine NORM (Normal)
[2019-10-05 17:37] LABS: Appearance, Urine Clear (Clear); Color, Urine Yellow (P-Yellow)
--- NOTE | 2019-10-05 17:57 | NUR ---
SHIFT SUMMARY- PT IS PLESANT AND COOPERATIVE. PT REPORTED PAIN RELATED TO COUGHING AND WAS MEDICATED NEEDED PER OCT. HER OXYGEN DEMAND INCREASED DURING THIS SHIFT AND SHE WAS PLACED ON 2L O2. PT HAD SOME INCREASED WEAKNESS THIS SHIFT AND WAS HAVING DIFFICULTY TRANSFERING FROM THE BED TO THE [facility]. SHE HAS INCREASING NEW CONFUSION DURING THIS SHIFT, SHE WAS HAVING DIFFICULTY REMEMBERING WHERE SHE WAS AND DIFFICULTY RECOGNIZING STAFF. CALLED CARE PROVIDER AND LABS AND UA WERE ORDERED. AT APPROXIMATLY 1600 HER MEMORY SEEMED TO CLEAR A BIT AND SHE BEGAN REMEMBERING STAFF NAMES AND WHERE SHE WAS AT. HER STATED THAT SHE WAS ACTING MORE LIKE HERSELF AGAIN. SHE DID NOT EAT OR DRINK WELL THIS SHIFT. AT APPROX 1800 PT WAS SLEEPING.
--- NOTE | 2019-10-05 18:57 | NUR ---
REVIEWED LAB RESULTS WITH Didire TRUONG/Geremias GAXIOLA
--- NOTE | 2019-10-06 03:46 | NUR ---
ADMINISTERED COUGH SYRUP AND PAIN MED FOR PATINET COMFORT
--- NOTE | 2019-10-06 05:30 | NUR ---
SHIFT SUMMARY PT CONTINUES TO HAVE HARSH NON PRODUCTIVE COUGH. PT UNABLE TO COUGH HARD ENOUGH TO CLEAR MUCUS. ASSUMING THIS IS AT LEAST PARTIALLY DUE TO PT HAVING SEVERE PAIN IN RIBS ASSOCIATED W/ COUGHING. PT HAD ONE EPISODE THIS AM WHERE SHE WAS GASPING FOR AIR DURING A COUGHING ATTACK. PT STATES THAT SOMETIMES WITH COUGHING IT "SUFFOCATES" HER. TALKED PT THROUGH EPISODE. BREATHING SLOWED. RT GAVE BREATHING TX. MEDICATED PER EMAR W/ COUGH SYRUP AND ROXICODONE FOR RIB PAIN. PT REMAINED ALERT AND ORIENTED THROUGHOUT THE SHIFT. VITAL SIGNS STABLE. NO OTHER ACUTE CHANGES. PT SLEPT OFF AND ON THROUGHOUT THE NIGHT. WILL CONTINUE TO MONITOR.
--- NOTE | 2019-10-06 11:20 | NUR ---
REPORT TO RUBY AT [facility]. ANSWER ALL QUESTIONS.
--- NOTE | 2019-10-06 18:02 | NUR ---
ALERT. ORIENTED. PER TO STAY ANOTHER NIGHT. HAS BEEN COUGHING LITTLE LESS THIS AFTERNOON. HAS BEEN USING "PICKLE". OXYGEN DOWN TO 1LPM VIA N/C WITH SATS IN 90'S. NO IV ASSESS NEEDED. AMBULATORY W/ONE PERSON ASSIST TO BATHROOM. USES CALL LIGHT APPROPRIATELY. TM
[2019-10-07 05:03] LABS: BASOPHILS ABSOLUTE AUTO 0.01 K/mm3 (0.00-0.23); BASOPHILS PERCENT AUTO 0 % (0-2); EOSINOPHILS ABSOLUTE AUTO 0.13 K/mm3 (0.00-0.68); EOSINOPHILS PERCENT AUTO 1 % (0-6); Hematocrit 29.7 % (33.0-51.0); Hemoglobin 9.6 g/dL (11.5-16.0); IMMATURE GRAN ABSOLUTE AUTO 0.07 K/mm3 (0.00-0.10); IMMATURE GRAN PERCENT AUTO 1 % (0-1); LYMPHOCYTES ABSOLUTE AUTO 1.33 K/mm3 (0.84-5.20); LYMPHOCYTES PERCENT AUTO 12 % (21-46); MONOCYTES ABSOLUTE AUTO 0.71 K/mm3 (0.16-1.47); MONOCYTES PERCENT AUTO 7 % (4-13); Mean Corpuscular HGB 29.9 pg (26.0-34.0); Mean Corpuscular HGB Conc 32.3 g/dL (31.5-36.5); Mean Corpuscular Volume 93 fL (80-100); Mean Platelet Volume 11.4 fL (9.1-12.4); NEUTROPHILS ABSOLUTE AUTO 8.72 K/mm3 (1.96-9.15); NEUTROPHILS PERCENT AUTO 80 % (41-73); Platelet Count 179 K/mm3 (150-400); RDW Coefficient Variation 12.6 % (11.7-14.2); RDW Standard Deviation 42.5 fL (35.1-46.3); Red Blood Cell Count 3.21 M/mm3 (3.80-5.20); White Blood Cell Count 10.97 K/mm3 (4.00-11.30)
[2019-10-07 05:28] LABS: Albumin/Globulin Ratio 0.9 (0.8-1.8); Bilirubin, Total 0.3 mg/dL (0.1-1.0); Calcium, Blood 8.5 mg/dL (8.5-10.1); Globulin, Blood 3.2 g/dL (2.2-4.0); Magnesium, Blood 2.2 mg/dL (1.6-2.4); Phosphorus, Blood 2.6 mg/dL (2.5-4.9); Potassium, Blood 4.2 mmol/L (3.5-5.5); Total Protein, Blood 6.2 g/dL (6.4-8.2)
--- NOTE | 2019-10-07 06:43 | NUR ---
SHIFT SUMMARY PATIENT ALERT AND ORIENTED. PATIENT HAVING A PERSISTENT, WET COUGH OVERNIGHT CAUSING PAIN IN HER RIBS. PATIENT MEDICATED FOR BOTH COUGH AND PAIN ACCORDING TO EMAR. PATIENT DOES NOT HAVE AN IV. BED IN LOWEST POSITION WITH WHEELS LOCKED. CALL LIGHT WITHIN REACH. REPORT GIVEN TO ONCOMING RN.
--- NOTE | 2019-10-07 08:20 | NUR ---
WHEN RN WENT INTO ROOM PATIENT WAS SITTING ON FLOOR WITH R.T. IN ROOM. STS WHEN PATIENT STOOD UP HER FEET SLID OUT FROM UNDER HER WITH R.T. CONTROLLING HER TO FLOOR. AROLDO LOVING NOTIFIED. PATIENT LIFTED BY RN AND R.T. TO CHAIR. DENIES PAIN/DISCOMFORT TO ANY AREA. R.T. CONTINUED TREATMENT.
--- NOTE | 2019-10-07 08:52 | NUR ---
PATIENT UNSURE IF LEFT LEG HURTS. ADVISED TO FINISH BREAKFAST SHE HAD ALREADY STARTED EATTING AND WHEN READY WILL GET HER READY TO STAND AND SEE HOW SHE DOES. 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 NO OBVIOUS BRUISING OR DEFORMITY.
--- NOTE | 2019-10-07 11:53 | NUR ---
REPORT TO RUBY LOV[facility] AT [facility]. ANSWER ALL QUESTIONS. AWARE TRANSPORT WILL DEPUTY SHERIFF [employer] AROUND 4PM TODAY.
--- NOTE | 2019-10-07 16:10 | NUR ---
[facility] W[facility].
== END 2019-10-07 16:02 | disposition home or self-care (01) | DRG 193 ==
LOC: ER 09:40 → PCU 13:39 → MEDS 10-01 18:51
PROVIDERS: Emergency Medicine; Hospitalist; Internal Medicine; Internal Medicine Critical Care Medicine; Internal Medicine Gastroenterology; Pharmacist; ADMIT Family Medicine
DX: J09.X1 Influenza due to identified novel influenza A virus with pneumonia (principal); J96.01 Acute respiratory failure with hypoxia; J44.0 Chronic obstructive pulmonary disease with (acute) lower respiratory infection; J44.1 Chronic obstructive pulmonary disease with (acute) exacerbation; I69.354 Hemiplegia and hemiparesis following cerebral infarction affecting left non-dominant side; N17.9 Acute kidney failure, unspecified; J12.89 Other viral pneumonia; M79.7 Fibromyalgia; G47.33 Obstructive sleep apnea (adult) (pediatric); E78.5 Hyperlipidemia, unspecified; I12.9 Hypertensive chronic kidney disease with stage 1 through stage 4 chronic kidney disease, or unspecified chronic kidney disease; E11.22 Type 2 diabetes mellitus with diabetic chronic kidney disease; N18.3 Chronic kidney disease, stage 3 (moderate); Z79.4 Long term (current) use of insulin; E66.09 Other obesity due to excess calories; G89.4 Chronic pain syndrome; M06.9 Rheumatoid arthritis, unspecified; Z87.891 Personal history of nicotine dependence; B97.29 Other coronavirus as the cause of diseases classified elsewhere
CPT/HCPCS: 0099U; 36415; 36600; 71045; 71046; 71260; 80048; 80053; 80069; 80202; 81003; 82803; 82947; 83735; 83880; 84100; 84145; 84484; 85025; 87070; 87205; 93005; 93010; 93970; 94640; 94644; 94660; 94667; 94668; 94760; 94762; 96361; 96374; 96375; 97110; 97116; 97162; 97166; 97530; 97535; 99285-25; A9270; A9270-GY; J0360; J0456; J1650; J1815; J1940; J2060; J2405; J2543; J2930; J3370; J7030; J7050; J7512; Q0163; Q9967

== ENCOUNTER → 2020-06-01 | Outpatient (CLI) | payer MEDICARE ==
[~2020-06-01] MED LIST changes: +ALLO100 PO; +AMLODIPINE BESYL5 MG PO; +ATOR80 PO; +CEFD300 PO; +DEXT30SU PO; +FURO20 PO; +HYDCHL25 PO; +HYDR10 PO; +Hair, Skin & N1 EACH PO; +MONT10T PO; +Prednisone10 MG PO; +ROXICODONE5 MG PO; +TRAZ50 PO; +VITAMIN D3 PO
== END | disposition home or self-care (01) ==
LOC: LAB SHORT 13:40 → LAB 13:40
DX: R30.0 Dysuria (principal)
CPT/HCPCS: 87077; 87086; 87147; 87186

== ENCOUNTER 2021-08-23 02:39 | Observation (INO) | payer MEDICARE ==
[~2021-08-23] VITALS: Ht 167.6 cm; Wt 104.3 kg
[2021-08-23 03:09] LABS: BASOPHILS ABSOLUTE AUTO 0.06 K/mm3 (0.00-0.23); BASOPHILS PERCENT AUTO 1 % (0-2); EOSINOPHILS ABSOLUTE AUTO 0.51 K/mm3 (0.00-0.68); EOSINOPHILS PERCENT AUTO 5 % (0-6); Hematocrit 32.8 % (33.0-51.0); Hemoglobin 10.8 g/dL (11.5-16.0); IMMATURE GRAN ABSOLUTE AUTO 0.03 K/mm3 (0.00-0.10); IMMATURE GRAN PERCENT AUTO 0 % (0-1); LYMPHOCYTES ABSOLUTE AUTO 1.69 K/mm3 (0.84-5.20); LYMPHOCYTES PERCENT AUTO 18 % (21-46); MONOCYTES ABSOLUTE AUTO 0.62 K/mm3 (0.16-1.47); MONOCYTES PERCENT AUTO 6 % (4-13); Mean Corpuscular HGB 31.1 pg (26.0-34.0); Mean Corpuscular HGB Conc 32.9 g/dL (31.5-36.5); Mean Corpuscular Volume 95 fL (80-100); Mean Platelet Volume 11.3 fL (9.1-12.4); NEUTROPHILS ABSOLUTE AUTO 6.74 K/mm3 (1.96-9.15); NEUTROPHILS PERCENT AUTO 70 % (41-73); Platelet Count 227 K/mm3 (150-400); RDW Coefficient Variation 13.7 % (11.7-14.2); RDW Standard Deviation 47.4 fL (35.1-46.3); Red Blood Cell Count 3.47 M/mm3 (3.80-5.20); White Blood Cell Count 9.65 K/mm3 (4.00-11.30)
[2021-08-23 03:23] LABS: Anion Gap 7 mmol/L (6-16); Blood Urea Nitrogen 24 mg/dL (8-24); Bun/Creatinine Ratio 17.1 (12.0-20.0); CO2, Blood 25 mmol/L (21-32); Chloride, Blood 109 mmol/L (98-108); Glomerular Filtration Rate 37 (60-); Glucose, Blood 105 mg/dL (70-99); Potassium, Blood 4.3 mmol/L (3.5-5.5); Sodium, Blood 141 mmol/L (136-145); Troponin I <0.015 ng/mL (0.000-0.040)
[2021-08-23] MEDS ORDERED: THERA-D2000 UNIT PO (20:16)
--- NOTE | 2021-08-23 20:20 | NUR ---
IMAGING IN ROOM FOR [facility] OF ABDOMEN. TOLERATED WELL.
--- NOTE | 2021-08-23 20:28 | NUR ---
SHIFT SUMMARY: ASSUMED CARE OF PATIENT UPON HER ARRIVAL FROM ED AT 1715. A&O X 3, SLOW TO RESPOND. WEAK IN ALL EXTREMITIES, GAIT IS ATAXIC AND IS DIZZY UPON RISING. REQUIRES ONE PERSON ASSIST, NEEDS FWW AND GAIT BELT. STATED SHE HAS HX OF SEIZURES, IS A DIET CONTROLLED DIABETIC. GOT UP TO BSC X 1, IS CONTINENT. DENIES PAIN AT THIS TIME.
--- NOTE | 2021-08-24 05:25 | NUR ---
SHIFT SUMMARY 75 YR F ADMITTED ON 08/23/21 FOR VERTIGO. FULL CODE. 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 SHE IS DIABETIC CONTROLLED BY DIET. SHE IS ABLE TO AMBULATE INDEPENDANTLY TO BEDSIDE COMMODE BUT MAY REQUIRE ASSISTANCE IF FEELING DIZZY. CARDIAC DIET WITH NO STRAWS INLIQUIDS. SHE IS SINUS ANNE AT 53.
[2021-08-24 05:49] LABS: Bun/Creatinine Ratio 19.5 (12.0-20.0); Calcium, Blood 8.8 mg/dL (8.5-10.1); Creatinine, Blood 1.28 mg/dL (0.40-1.00); Potassium, Blood 4.8 mmol/L (3.5-5.5)
[2021-08-24 05:57] LABS: BASOPHILS ABSOLUTE AUTO 0.03 K/mm3 (0.00-0.23); BASOPHILS PERCENT AUTO 0 % (0-2); EOSINOPHILS ABSOLUTE AUTO 0.33 K/mm3 (0.00-0.68); EOSINOPHILS PERCENT AUTO 5 % (0-6); Hematocrit 33.6 % (33.0-51.0); Hemoglobin 10.6 g/dL (11.5-16.0); IMMATURE GRAN ABSOLUTE AUTO 0.02 K/mm3 (0.00-0.10); IMMATURE GRAN PERCENT AUTO 0 % (0-1); LYMPHOCYTES ABSOLUTE AUTO 1.23 K/mm3 (0.84-5.20); LYMPHOCYTES PERCENT AUTO 18 % (21-46); MONOCYTES ABSOLUTE AUTO 0.45 K/mm3 (0.16-1.47); MONOCYTES PERCENT AUTO 6 % (4-13); Mean Corpuscular HGB 30.7 pg (26.0-34.0); Mean Corpuscular HGB Conc 31.5 g/dL (31.5-36.5); Mean Corpuscular Volume 97 fL (80-100); Mean Platelet Volume 11.4 fL (9.1-12.4); NEUTROPHILS ABSOLUTE AUTO 4.97 K/mm3 (1.96-9.15); NEUTROPHILS PERCENT AUTO 71 % (41-73); Platelet Count 203 K/mm3 (150-400); RDW Coefficient Variation 13.6 % (11.7-14.2); RDW Standard Deviation 48.7 fL (35.1-46.3); Red Blood Cell Count 3.45 M/mm3 (3.80-5.20); White Blood Cell Count 7.03 K/mm3 (4.00-11.30)
--- NOTE | 2021-08-24 18:09 | NUR ---
SUMMARY PT SITTING UP IN BED EATING DINNER, PT HAS BEEN PLEASANT AND COOPERATIVE WITH CARE T/O THE DAY, PT IS A SBA TO THE COMMODE, PT HAS WORKED WITH PT/OT, GETS DIZZY/VERTIGO WITH ANY ACTIVITY, PT MED PER EMAR WITH MECLIZINE PRN, VSS, WILL CONT TO MONITOR
--- NOTE | 2021-08-25 06:44 | NUR ---
SHIFT SUMMARY: PATIENT CONTINUES TO HAVE DIZZINESS INTERMITTENTLY WHILE SITTING AND STANDING. USING BSC WITH SBA. BP FLUCTUATES WITH SBP UP TO THE 160'S, HR IS STABLE. TOLERATING DIET WELL.
[2021-08-25] MEDS ORDERED: MECL25 PO (11:28)
--- NOTE | 2021-08-25 12:00 | NUR ---
SUMMARY/DISCHARGE PT DISCHARGED TO HOME AFTER A SESSION WITH THERAPY, SPOUSE WAS PRESENT, SAFETY RECOMMENDATIONS GIVEN TO PT AND SPOUSE BY THERAPIST, PT VERBALIZED UNDERSTANDIN OF DISCHARGE INSTRUCTIONS REGARDING MEDS AND FOLLOW UP, PT TAKEN OUT SAFELY VIA WHEELCHAIR
--- NOTE | 2021-08-25 14:47 | NUR ---
Per Dr. Nguyen discharge appropriate on: 08/25/21. Patient and do not oppose discharge. Patient's provided transportation to residence. DME: Patient has a cane, walker, and wheelchair (uses walker or wheelchair when out and about). [facility] contacted. Patient will be contacted by [facility] Transition of Care to schedule hospital follow-up with PCP Dr. Martina Holder. Patient has a good support network; provides transportation as needed and assists with ADL's as needed. Patient to contact PCP if any questions regarding medication management or if condition worsens, patient to go to urgent care. No barriers to discharge.
== END 2021-08-25 11:53 | disposition home health service (06) ==
LOC: ER 02:39 → MEDS 02:40 → ERHOLD 02:40 → MEDS 02:41 → ER 09:58 → MEDS 09:58 → ERHOLD 09:58 → MEDS 17:07 → ERHOLD 17:07 → MEDS 17:07
PROVIDERS: Student in an Organized Health Care Education/Training Program; ADMIT Hospitalist
DX: H81.10 Benign paroxysmal vertigo, unspecified ear (principal); R74.01 Elevation of levels of liver transaminase levels; I65.23 Occlusion and stenosis of bilateral carotid arteries; I12.9 Hypertensive chronic kidney disease with stage 1 through stage 4 chronic kidney disease, or unspecified chronic kidney disease; N18.30 Chronic kidney disease, stage 3 unspecified; D63.1 Anemia in chronic kidney disease; E78.5 Hyperlipidemia, unspecified; D32.0 Benign neoplasm of cerebral meninges; E11.22 Type 2 diabetes mellitus with diabetic chronic kidney disease; E11.42 Type 2 diabetes mellitus with diabetic polyneuropathy; E11.51 Type 2 diabetes mellitus with diabetic peripheral angiopathy without gangrene; R26.0 Ataxic gait; J44.9 Chronic obstructive pulmonary disease, unspecified; I69.954 Hemiplegia and hemiparesis following unspecified cerebrovascular disease affecting left non-dominant side; Z88.5 Allergy status to narcotic agent; Z88.8 Allergy status to other drugs, medicaments and biological substances; Z87.891 Personal history of nicotine dependence
CPT/HCPCS: 36415; 70450; 70551; 71045; 76705; 80048; 84484; 85025; 92610; 93005; 93010; 93306; 93880; 97110; 97116-CQ; 97161; 97165; 97530; 97530-CQ; A9270; G0378; J1650; J2060; J2550; J7030

== ENCOUNTER 2022-02-08 07:52 | Day surgery (SDC) | payer MEDICARE ==
[~2022-02-08] VITALS: Ht 170.2 cm; Wt 92.2 kg
[~2022-02-08 07:52] MED LIST changes: +MECL25 PO; +THERA-D2000 UNIT PO
== END 2022-02-08 10:43 | disposition home or self-care (01) ==
LOC: ORSCSDS 07:52
PROVIDERS: Internal Medicine Gastroenterology
PROC: 0DB58ZX Excision of Esophagus, Via Natural or Artificial Opening Endoscopic, Diagnostic (ICD-10-PCS; principal; 2022-02-08 09:30)
PROC: 0DBK8ZX Excision of Ascending Colon, Via Natural or Artificial Opening Endoscopic, Diagnostic (ICD-10-PCS; principal; 2022-02-08 09:30)
DX: K74.60 Unspecified cirrhosis of liver (principal); Z12.11 Encounter for screening for malignant neoplasm of colon; D12.2 Benign neoplasm of ascending colon; K20.90 Esophagitis, unspecified without bleeding; K75.81 Nonalcoholic steatohepatitis (NASH); E66.9 Obesity, unspecified; Z68.32 Body mass index [BMI] 32.0-32.9, adult; Z98.84 Bariatric surgery status; Z79.899 Other long term (current) drug therapy
CPT/HCPCS: 88305; 88312; J2405; J2704; J7120

== ENCOUNTER → 2024-09-18 | Outpatient (CLI) | payer MEDICARE | LOC: LAB SHORT 13:20 → LAB 13:20 | DX: D23.71 Other benign neoplasm of skin of right lower limb, including hip (principal); D22.9 Melanocytic nevi, unspecified | CPT/HCPCS: 88305 ==

== ENCOUNTER → 2024-12-08 | Outpatient (CLI) | payer MEDICARE ==
[2024-12-08 20:46] LABS: Creatinine, Urine Random 44.4 mg/dL (27.00-270.00); Microalb/Creat Ratio UR, Rand 3626.13 mg/g (0.000-30.000)
== END ==
LOC: LAB 12:15 → LAB SHORT 12:15
PROVIDERS: Internal Medicine
DX: E11.42 Type 2 diabetes mellitus with diabetic polyneuropathy (principal)
CPT/HCPCS: 82043; 82570

== ENCOUNTER → 2025-04-27 | Outpatient (CLI) | payer MEDICARE ==
[2025-04-27 13:38] LABS: Creatinine, Urine Random 10.8 mg/dL (27.00-270.00); Microalb/Creat Ratio UR, Rand 1879.63 mg/g (0.000-30.000); Microalbumin, Random Urine 203.0 mg/L (0.000-20.000)
== END ==
LOC: LAB SHORT 09:00 → LAB 09:00
PROVIDERS: Internal Medicine
DX: E11.21 Type 2 diabetes mellitus with diabetic nephropathy (principal)
CPT/HCPCS: 82043; 82570